=== PATIENT | male | born 1940 | race Caucasian/White ===

== ENCOUNTER 2022-03-01 08:16 | Day surgery (SDC) | payer MEDICARE, OTHER, SELFPAY ==
[2022-03-01] VITALS (16 sets, daily range): BP systolic 105–176; BP diastolic 72–121; PULSE 61–67; RESP 16–20; TEMP 36.4–36.9; O2SAT 93–99; BMI 23.8
[2022-03-01] MEDS: SODIUM CHLORIDE 0.9 % (FLUSH) 10 ML SYRINGE IVF (08:45)
[2022-03-01] MEDS: LACTATED RINGERS 1000 ML 1,000 ML 100 ML IV (08:45)
[2022-03-01] MEDS: CEFAZOLIN 2 GM INJ IVP (11:15)
--- NOTE | 2022-03-01 11:55 | SUR.OPER ---
PATIENT QUESTIONS ANSWERED SATISFACTORILY PREOPERATIVELY.? PATIENT BROUGHT TO OR #1 PER CART.? Patient positioned supine on OR #1 bed.?The perioperative?team supported arms bilaterally on arm boards.? Final approval of positioning by surgeon.
--- NOTE | 2022-03-01 12:34 | PM.GSPRC ---
Operative Note Date of procedure: 03/01/22 Type of Procedure: Open right inguinal hernia repair with placement of mesh Procedure Description: After discussing the risks and benefits of the procedure, the patient signed informed consent.? The operative site was marked and the patient was brought to the operating room and placed on the operating table in supine position.? Care was taken to pad the patient's pressure points.?? The patient was then sedated by anesthesia and a spinal anesthetic was administered The operative site was then prepped and draped in the usual sterile fashion.? A time-out was then performed. Local anesthetic was injected into the skin and subcutaneous tissue overlying the inguinal canal. An oblique incision would was made over the external ring. Dissection was carried down into the subcutaneous tissue using cautery until the external oblique fascia was encountered. This was cleared off. The external ring was identified and after injection of more local anesthetic, the external oblique was incised using a knife. This was extended using the Metzenbaum scissors with care to dissect the underlying cord structures away before cutting. The cord was cleared from the inside of the inguinal canal and looped with a [place] drain. A indirect inguinal hernia was identified. The hernia sac was dissected off of the cord structures. This was opened to ensure no intra-abdominal contents were present. The hernia sac was then ligated proximal and reduced into the abdomen. The piece of polypropylene mesh was obtained and cut to size. This was secured to the pubic tubercle using to 2-0 Prolene double-arm suture. The Prolene was run along the inguinal ligament and superiorly along the transversalis fascia securing the tails behind the cord and recreating the internal ring. Wound was examined for hemostasis. The external oblique fascia was then reapproximated with absorbable suture. The wound was then closed in layers including Michael's fascia and the dermis with the cervical suture. The skin was then closed with a running subcuticular suture. Sterile dressings were applied. Instrument sponge and needle counts were correct at the end of the case. The patient was woken and taken to the PACU in stable condition. ? Sterile dressings were then applied. ? The patient was then woken and transported to the recovery area in stable condition. ? The patient tolerated the procedure well. Findings: Indirect inguinal hernia Anesthesia: spinal Surgeon: Flower Laruen MD Estimated blood loss (mL): 10 Condition: stable Disposition: same day
--- NOTE | 2022-03-01 12:47 | W.ANESCHARGE ---
Anesthesia Charges Start Date/Time Anesthesia Start Date: 03/01/22 Anesthesia Start Time: 11:04 Stop Date/Time Anesthesia Stop Date: 03/01/22 Anesthesia Stop Time: 12:39 Summary Emergency: No Extremes of Age: Over 71-CPT 62704
[2022-03-01] MEDS: OXYCODONE 5 MG TABLET PO (13:50)
--- NOTE | 2022-03-01 15:10 | W.ANESCHARGE ---
Anesthesia Charges Start Date/Time Anesthesia Start Date: 03/01/22 Anesthesia Start Time: 11:04 Stop Date/Time Anesthesia Stop Date: 03/01/22 Anesthesia Stop Time: 12:39 Summary Emergency: No Extremes of Age: Over 71-CPT 66140
== END 2022-03-01 15:00 | disposition home or self-care (01) ==
PROVIDERS: PCP Physician Assistant Medical; Visit Provider Surgery
PROC: (CPT 49505; principal; 2022-03-01 09:50)
DX: K40.90 Unilateral inguinal hernia, without obstruction or gangrene, not specified as recurrent (principal)
CPT/HCPCS: 49505; 00830; 99100; A9270; C1781; J0690; J2370; J2400; J2704; J3010; J7120

== ENCOUNTER 2022-09-07 09:27 | Emergency (ER) | payer MEDICARE, OTHER, SELFPAY ==
[2022-09-07 09:39] VITALS: BP 147/90; PULSE 60; RESP 20; TEMP 37.2; O2SAT 93; BMI 23.7
--- NOTE | 2022-09-07 09:54 | ED_ITS ---
HPI - General Adult General Chief complaint: Weakness Stated complaint: Weakness, Cough, Can't feel legs off and on Time Seen by Provider: 09/07/22 09:30 History of Present Illness HPI narrative: Patient is 82-year-old male was brought in by his son with a complaint of cough, weakness. He has had multiple medical problems as reviewed in his chart. He does report that he has had some generalized weakness and cough over the last few days. His called his son who brought him here today. The patient denies any chest pain, any cough at this time to me, but his son reports that he did have a cough at home and has had been coughing up material. He has had no leg swelling no chest pain, but he did tell the nurses he had chest pain he denies that to me. Presents to ED for evaluation with his son's assistance. He states he has been weak to roll over in bed and he has also been weak in his legs but he has been able to walk. No bowel or bladder dysfunction Related Data Home Medications Medication Instructions Recorded Confirmed aspirin 81 mg tablet,delayed 81 mg PO DAILY 02/25/22 03/01/22 release (Adult Aspirin Regimen) bromocriptine 2.5 mg tablet 2.5 mg PO DAILY 02/25/22 02/25/22 carbidopa 25 mg-levodopa 100 mg 1 tab PO TID 02/25/22 03/01/22 tablet (Sinemet) lorazepam 0.5 mg tablet (Ativan) 0.5 mg PO Q6H PRN 02/25/22 02/25/22 nitroglycerin 0.4 mg sublingual 0.4 mg sublingual .Q5 PRN chest 02/25/22 02/25/22 tablet pain oxycodone-acetaminophen 5 mg-325 1 tab PO Q6H PRN 02/25/22 03/01/22 mg tablet sennosides 8.6 mg capsule (senna) 8.6 mg PO BID 02/25/22 03/01/22 sildenafil 50 mg tablet (Viagra) 50 mg PO DAILY PRN 02/25/22 02/25/22 simvastatin 40 mg tablet 40 mg PO DAILY 02/25/22 03/01/22 trospium 60 mg capsule,extended 60 mg PO DAILY 02/25/22 02/25/22 release 24 hr Previous Rx's Medication Instructions Recorded oxycodone 5 mg tablet 5 mg PO Q6H PRN pain #10 tabs 03/01/22 sennosides 8.6 mg capsule (senna) 8.6 mg PO DAILY PRN constipation 03/01/22 #90 caps azithromycin 500 mg tablet 500 mg PO DAILY 3 days #3 tabs 09/07/22 (Zithromax TRI-ANDRE) furosemide 20 mg tablet (Lasix) 20 mg PO DAILY 5 days #5 tabs 09/07/22 prednisone 20 mg tablet 20 mg PO DAILY 3 days #3 tabs 09/07/22 Allergies Allergy/AdvReac Type Severity Reaction Status Date / Time No Known Allergies Allergy Verified 09/07/22 09:39 Review of Systems Status of ROS: Reports: 6 or more systems reviewed and unremarkable except as noted in History and below [facility] Medical History Acute kidney injury Adrenal hyperplasia Anxiety state, unspecified Arteriosclerotic cardiovascular disease Benign localized prostatic hyperplasia without lower urinary tract symptoms (LUTS) Benign neoplasm of colon, unspecified Cardiac pacemaker Chronic kidney disease, stage 3 unspecified Chronotropic incompetence COPD (chronic obstructive pulmonary disease) Degenerative joint disease of knee, right Dyslipidemia, goal LDL below 70 ED (erectile dysfunction) Gastric reflux Hyperkalemia Hypertension Lung nodule Orthostatic hypotension Other adrenocortical insufficiency Other cervical disc degeneration, unspecified cervical region Pain in unspecified shoulder Sensorineural hearing loss, bilateral Tremor, unspecified Ureteral dilatation Surgical History History of permanent cardiac pacemaker placement Social History Smoking Status: Never smoker How often do you have a drink containing alcohol: never How often do you have six or more drinks on one occasion: Never AUDIT-C Alcohol total score: 0 Non-prescribed substance use: denies use Caffeine: No service: No Exam Narrative: Exam Narrative: Objective: Patient's vital signs are unremarkable He is alert orient x3 He has got mild mattering about his eyes. He is alert orient x3, noncyanotic HEENT is otherwise unremarkable throat clear Neck is supple Chest is clear no rales or wheezing Heart rhythm regular 2/6 systolic murmur Abdomen benign soft nontender Extremities are no edema neurologic nonfocal Good peripheral perfusion Normal strength and sensation lower extremities is able to lift his legs off the ground, normal flexion extension of the ankles to resist Const: Vital Signs, click to edit/add: Vital Signs - 24 hr 09/07/22 09:39 09/07/22 12:09 Temperature 99.0 F 98.9 F Pulse Rate [Left] 60 64 Respiratory Rate 20 20 Blood Pressure [Ri ght Upper Arm] 147/90 H 126/68 Pulse Oximetry 93 93 Oxygen Delivery Me thod Room Air Room Air Course Vital Signs Vital signs: Initial Vital Signs Temperature 99.0 F 09/07/22 09:39 Temperature Source Temporal Artery Scan 09/07/22 09:39 Pulse Rate 60 09/07/22 09:39 Pulse Rhythm 09/07/22 09:39 Respiratory Rate 20 09/07/22 09:39 Blood Pressure 147/90 H 09/07/22 09:39 Blood Pressure Mean 109 09/07/22 09:39 Pulse Oximetry 93 09/07/22 09:39 Oxygen Delivery Method 09/07/22 09:39 Vital Signs Temperature 99.0 F 09/07/22 09:39 Pulse Rate 60 09/07/22 09:39 Respiratory Rate 20 09/07/22 09:39 Blood Pressure 147/90 H 09/07/22 09:39 Pulse Oximetry 93 09/07/22 09:39 Oxygen Delivery Method 09/07/22 09:39 Temperature 98.9 F 09/07/22 12:09 Pulse Rate 64 09/07/22 12:09 Respiratory Rate 20 09/07/22 12:09 Blood Pressure 126/68 09/07/22 12:09 Pulse Oximetry 93 09/07/22 12:09 Oxygen Delivery Method 09/07/22 12:09 Medical Decision Making MDM Narrative Medical decision making narrative: Patient has a cough and has been weak over the last few days. He has no chronic respiratory condition by his report, denies emphysema. Discussed workup options with he and his son. His son is adamant that he not get a nasal test for COVID/influenza/RSV due to the fact that he lost his smell for 2 years and he feels it was related to the nasal test. When I described to the son that he I would recommend we rule out RSV and COVID, he says ?what is COVID, we do not really know what it is. ?. The patient after mutual decision making does agree to get a chest x-ray and some lab work done. I think that is reasonable. I would recommend however that he have COVID and RSV and influenza testing, but they elected to just do blood work and an x-ray. Addendum: By my read the x-ray shows some alveolar edema or inflammation. He certainly could have a viral infection. Again they are not allowing a COVID/influenza/RSV test. Given this this could be infectious or mild congestive failure. The patient reports that he did have cardiac stents in the past and a pacemaker but has not had heart failure by his report, the patient is agreeable to get some IV antibiotics and IV Lasix. Given the wound get a COVID test he the ER unable to admit him to the hospital, but he does not think he needs admission. I would recommend an outpatient echocardiogram, follow up with regular doctors aligned within the next couple of days light activity. Will given several days of Lasix, Zithromax for home. Addendum: The patient's EKG shows paced rhythm and his troponin is negative, his proBNP is elevated 2200. I think the Lasix prednisone antibiotics is appropriate. Again we are unable to test him for COVID/influenza/RSV. Very well might have 1 of these. He might have some mild congestive heart failure as well as he did have coronary artery disease in the past. Would recommend an echo as an outpatient as well as continue Lasix for couple of days. Lab Data Labs: Lab Results 09/07/22 09/07/22 Range/Units 10:06 10:06 WBC 11.56 H (4.50-11.00) K/uL RBC 4.74 (4.30-5.90) m/uL Hgb 14.2 (13.5-17.5) gm/dL Hct 42.2 (37.0-53.0) % MCV 89 (80-100) fL MCH 30 (26-34) pg MCHC 34 (32-36) gm/dL RDW Coeff of Petr 13.4 (11.5-15.5) % Plt Count 154 (140-440) K/uL Neut % (Auto) 85.0 H (42.0-72.0) % Lymph % (Auto) 4.9 L (20-44) % [place] % (Auto) 9.3 (0.0-11.0) % Eos % (Auto) 0.4 (0.0-7.0) % Baso % (Auto) 0.1 (0.0-3.0) % Neut # (Auto) 9.80 H (1.7-7.0) K/uL Lymph # (Auto) 0.60 L (0.90-2.90) K/uL [place] # (Auto) 1.10 H (0.00-0.90) K/UL Eos # (Auto) 0.00 (0.00-0.50) K/uL Baso # (Auto) 0.00 (0.00-0.30) K/uL Sodium 135 (135-149) mmol/L Potassium 3.8 (3.6-5.1) mmol/L Chloride 102 (96-114) mmol/L Carbon Dioxide 27 (20-32) mmol/L BUN 19 (7-30) mg/dL Creatinine 0.9 (0.5-1.5) mg/dL Estimated Creat Clear 63.59 Estimated GFR 86 ml/min Glucose 110 (60-115) mg/dL Calcium 8.3 L (8.4-10.6) mg/dL Troponin I 0.03 (0.01-0.04) ng/mL NT-Pro-B Natriuret Pep 2200 pg/mL Discharge Plan Discharge Clinical Impression: Acute cough, Weakness Patient Disposition: Home w/ Parent or Adult Condition: Stable Additional Instructions: Rest, fluids, Tylenol or Advil as needed. Will discharge you on oral antibiotics, a couple days of steroids, and a water pill for several days as well. I would recommend he recheck with your regular doctor in the next 2-3 days. Would recommend an outpatient ultrasound of your heart to make sure it is functioning normally. Return to the ED sooner problems concerns or worsening. Activity Level: Light activity Discharge Diet: Regular Prescriptions: New azithromycin [Zithromax TRI-ANDRE] 500 mg tablet 500 mg PO DAILY 3 Days Qty: 3 0RF furosemide [Lasix] 20 mg tablet 20 mg PO DAILY 5 Days Qty: 5 0RF prednisone 20 mg tablet 20 mg PO DAILY 3 Days Qty: 3 0RF No Action aspirin [Adult Aspirin Regimen] 81 mg tablet,delayed release (DR/EC) 81 mg PO DAILY bromocriptine 2.5 mg tablet 2.5 mg PO DAILY Rx Instructions: must administer with a meal/food carbidopa-levodopa [Sinemet] 25-100 mg tablet 1 tab PO TID lorazepam [Ativan] 0.5 mg tablet 0.5 mg PO Q6H PRN nitroglycerin 0.4 mg tablet, sublingual 0.4 mg sublingual .Q5 PRN (Reason: chest pain) Rx Instructions: PRN CHEST PAIN oxycodone-acetaminophen 5-325 mg tablet 1 tab PO Q6H PRN senna 8.6 mg capsule 8.6 mg PO BID sildenafil [Viagra] 50 mg tablet 50 mg PO DAILY PRN Rx Instructions: administer 30 minutes to 4 hours before activity simvastatin 40 mg tablet 40 mg PO DAILY trospium 60 mg capsule,extended release 24hr 60 mg PO DAILY Rx Instructions: must be taken on empty stomach at least 1 hour before a meal/food with water only oxycodone 5 mg tablet 5 mg PO Q6H PRN (Reason: pain) Qty: 10 0RF senna 8.6 mg capsule 8.6 mg PO DAILY PRN (Reason: constipation) Qty: 90 0RF Follow Up/Referrals: Enid Johnston, PAMiguel Angel [Primary Care Provider] - Stand Alone Forms: [employer] Info Instructions
--- NOTE | 2022-09-07 09:54 | CRLHL7_ITS ---
For Patients: As a result of the Century Cures Act, medical imaging exams and procedure reports are released immediately into your electronic medical record. You may view this report before your referring provider. If you have questions, please contact your health care provider. INDICATION: Cough COMPARISON: July 12, 2021. TECHNIQUE: Single-view examination FINDINGS: TUBES AND LINES: Pacer with leads terminating in the right atrium and the right ventricle HEART AND MEDIASTINUM: Heart size normal. Significantly enlarged central pulmonary arteries consistent with pulmonary hypertension. Similar to the prior exam. LUNGS AND PLEURAL SPACES: Abnormal interstitial and alveolar findings likely related to pulmonary edema/congestive heart failure. A diffuse inflammatory process accounting for this appearance is possible.No pleural effusion or pneumothorax OSSEOUS STRUCTURES: Age-appropriate appearance. No acute focal finding. IMPRESSION: 1. Abnormal interstitial and alveolar findings likely related to pulmonary edema/congestive heart failure. A diffuse inflammatory process may create this appearance. Normal pleural spaces. 2. Pacer normally located. 3. Enlarged central pulmonary arteries consistent with pulmonary hypertension. Similar to the prior exam. Dictated by Dell Dutta MD @ 09/07/2022 10:12:10 AM (Electronically Signed)
--- NOTE | 2022-09-07 10:01 | ED.NURSE ---
Patient and grandson refused swabbing for COVID-19, Flu, and RSV today. Encouraged them to speak with provider to discuss concerns.
[2022-09-07 10:13] LABS: Basophils Percent Auto 0.1 % (0.0-3.0); Eosinophils Percent Auto 0.4 % (0.0-7.0); Hematocrit 42.2 % (37.0-53.0); Hemoglobin* 14.2 gm/dL (13.5-17.5); Immature Granulocytes Pct Auto 0.3 %; Lymphocytes Percent Auto 4.9 % (20-44); Mean Corpuscular HGB Conc 34 gm/dL (32-36); Mean Corpuscular Hemoglobin 30 pg (26-34); Mean Corpuscular Volume 89 fL (80-100); Monocytes Percent Auto 9.3 % (0.0-11.0); Platelet Count* 154 K/uL (140-440); RDW Coefficient of Variation % 13.4 % (11.5-15.5); Red Blood Count 4.74 m/uL (4.30-5.90); White Blood Count* 11.56 K/uL (4.50-11.00)
[2022-09-07 10:23] LABS: Slide Review Reflex No
[2022-09-07 10:24] LABS: Chloride* 102 mmol/L (96-114)
[2022-09-07 10:25] LABS: Potassium* 3.8 mmol/L (3.6-5.1); Sodium* 135 mmol/L (135-149)
[2022-09-07 10:27] LABS: Creatinine* 0.9 mg/dL (0.5-1.5); Est. Creatinine Clearance* 63.59; Estimated Glomerular Filt Rate 86 ml/min
[2022-09-07 10:28] LABS: Blood Urea Nitrogen* 19 mg/dL (7-30); Calcium* 8.3 mg/dL (8.4-10.6); Carbon Dioxide* 27 mmol/L (20-32); Glucose* 110 mg/dL (60-115)
[2022-09-07] MEDS: METHYLPREDNISOLONE SOD SUCC 62.5 MG/ML (125) 125 MG IVP (11:03)
[2022-09-07] MEDS: FUROSEMIDE 10 MG/ML inj 40 MG IVP (11:03)
[2022-09-07] MEDS: AZITHROMYCIN 100 MG/ML inj 500 MG IVPB (11:03)
[2022-09-07 11:14] LABS: Troponin I* 0.03 ng/mL (0.01-0.04)
[2022-09-07 11:15] LABS: NT Pro B Type NatriureticPept* 2200 pg/mL
[2022-09-07 12:09] VITALS: BP 126/68; PULSE 64; RESP 20; TEMP 37.2; O2SAT 93
[2022-09-07] MEDS: cefTRIAXone 1 GM in 0.9 % SODIUM CHLORIDE Mini-bag 100 ML IVPB (12:40)
== END 2022-09-07 13:24 | disposition home or self-care (01) ==
LOC: ED 10:09
PROVIDERS: Emergency Provider Family Medicine; PCP Physician Assistant Medical
DX: R05.1 Acute cough (principal)
CPT/HCPCS: 36415; 71045; 80048; 83880; 84484; 85025; 93005; 99284; J0456; J0696; J1940; J2930

== ENCOUNTER 2022-09-08 16:22 | Inpatient (IN) | payer MEDICARE, OTHER, SELFPAY ==
[2022-09-08] VITALS (14 sets, daily range): BP systolic 112–150; BP diastolic 66–111; PULSE 61–100; RESP 18–20; TEMP 36.3–38.4; O2SAT 89–95; BMI 23.7; BMI 25.1
--- NOTE | 2022-09-08 16:52 | ED_ITS ---
HPI - General Adult General Time Seen by Provider: 16:52 Date Seen: 09/08/22 Chief complaint: Shortness of Breath/Dyspnea Stated complaint: Short of breath Time Seen by Provider: 09/08/22 16:44 Source: patient and RN notes reviewed Mode of arrival: ambulatory Limitations: no limitations History of Present Illness HPI narrative: Matthew is an 82-year-old male coming into the ER with increasing confusion, misuse of his medicines due to his confusion, ongoing cough. Matthew was in the ER yesterday with a few day history of cough, weakness. He was given Zithromax, prednisone in Lasix for possible underlying COPD, respiratory infection and may be component of CHF. His proBNP was elevated at 2200. He has underlying Parkinson's as well. His son late out the medicines for the next 3 days and Matthew became confused. He has taken 3 days of Lasix as well as azithromycin, probably prednisone. He may have gotten his Parkinson's medications confused as well. He has had a respiratory symptoms and is coughing. He denies feeling short of breath but is definitely confused today he is alert and conversive but does seem tired overall. Yesterday his son did not want him to have the viral swab nasally. I did discuss this with him today and he certainly is agreeable to have it done today, he just wants to help his dad. Reviewed with the son that I think it does give us important information, 2 other viruses may have medicines that we can intervene with. He denies any pain except with coughing in his chest. Related Data Home Medications Medication Instructions Recorded Confirmed aspirin 81 mg tablet,delayed 81 mg PO DAILY 02/25/22 09/08/22 release (Adult Aspirin Regimen) bromocriptine 2.5 mg tablet 2.5 mg PO DAILY 02/25/22 09/09/22 carbidopa 25 mg-levodopa 100 mg 1 tab PO TID 02/25/22 09/08/22 tablet (Sinemet) lorazepam 0.5 mg tablet (Ativan) 0.5 mg PO Q6H PRN 02/25/22 09/08/22 nitroglycerin 0.4 mg sublingual 0.4 mg sublingual Q5M PRN chest 02/25/22 09/09/22 tablet pain oxycodone-acetaminophen 5 mg-325 1 tab PO Q6H PRN 02/25/22 09/09/22 mg tablet sennosides 8.6 mg capsule (senna) 8.6 mg PO BID 02/25/22 09/08/22 sildenafil 50 mg tablet (Viagra) 50 mg PO DAILY PRN 02/25/22 09/09/22 simvastatin 40 mg tablet 40 mg PO DAILY 02/25/22 09/08/22 trospium 60 mg capsule,extended 60 mg PO DAILY 02/25/22 09/08/22 release 24 hr fludrocortisone 0.1 mg tablet 0.1 mg PO BID 09/08/22 09/08/22 Previous Rx's Medication Instructions Recorded sennosides 8.6 mg capsule (senna) 8.6 mg PO DAILY PRN constipation 03/01/22 #90 caps azithromycin 500 mg tablet 500 mg PO DAILY 3 days #3 tabs 09/07/22 (Zithromax TRI-ANDRE) furosemide 20 mg tablet (Lasix) 20 mg PO DAILY 5 days #5 tabs 09/07/22 prednisone 20 mg tablet 20 mg PO DAILY 3 days #3 tabs 09/07/22 Allergies Allergy/AdvReac Type Severity Reaction Status Date / Time No Known Allergies Allergy Verified 09/08/22 16:39 Review of Systems Status of ROS: Reports: 10 or more systems reviewed and unremarkable except as noted in History and below Narrative: Patient is denying many pertinent positives on the review systems but do question his full ability due to his illness, fever and confusion to give us definitive review of systems. [facility] Medical History (Updated 09/11/22 @ 11:54 by Mariella Haas MD) Adrenal insufficiency Cardiac pacemaker Chronic kidney disease, stage 3 unspecified COPD (chronic obstructive pulmonary disease) Coronary artery disease Degenerative joint disease of knee, right Dyslipidemia, goal LDL below 70 ED (erectile dysfunction) Hyperlipidemia Hypertension Orthostatic hypotension Parkinson's disease Sensorineural hearing loss, bilateral Solitary lung nodule Surgical History History of permanent cardiac pacemaker placement Social History Highest level of school completed/degree received: 11th grade Smoking Status: Former smoker Do you use any of these nicotine containing products: None How often do you have a drink containing alcohol: never How often do you have six or more drinks on one occasion: Never AUDIT-C Alcohol total score: 0 Non-prescribed substance use: denies use Caffeine: Yes (occasional coffee) service: No Exam Const: Vital Signs, click to edit/add: Vital Signs - 24 hr 09/08/22 16:29 09/08/22 17:45 Temperature 101.1 F H Pulse Rate [Right Pulse Oximeter] 100 Respiratory Rate 18 Blood Pressure [Ri ght Upper Arm] 112/66 Pulse Oximetry 92 91 Oxygen Delivery Me thod Room Air Documenting provider has reviewed patient's vital signs: yes Common normals: no apparent distress, average body habitus and alert General appeara nce: cooperative, comfortable, well kempt, well developed, ill appearing and frail appearing Orientation/consciousness: Yes awake Other: He really does not remember what he did with the pills but no that he got confused and took them wrong. His cheeks are flushed. Speech is coherent, normal. HENMT: Common normals: normocephalic, head/scalp atraumatic, hearing grossly normal bilaterally, external nose normal and nasal mucous membranes and turbinates normal Head and scalp: normocephalic and atraumatic Nose: external nose normal and nasal mucous membranes and turbinates normal Other: Mucous membranes are somewhat dry. Has symmetrical facial function while talking to him. Eye: Common normals: PERRL, EOMs intact bilaterally, conjunctivae normal and no scleral icterus Conjunctiva: conjunctiva(e) normal Pupil: PERRL Neck & C-Spine: Common normals: full ROM, no lymphadenopathy, supple, no meningeal signs, no JVD and thyroid normal Thyroid: thyroid normal Chest: Common normals: inspection of chest normal and palpation of chest normal Resp: Common normals: normal respiratory effort, no retractions and no use of accessory muscles Other: Rolls to his side so I can listen to his lungs. Breath sounds are distant, hear no wheezing. He is not tachypneic at this time. Is able to speak without difficulty. Cardio: Common normals: no JVD, regular rate, regular rhythm, S1 normal heart sound, S2 normal heart sound, no gallops and no murmurs Rate: regular rate Rhythm: regular rhythm Heart sounds: S1 normal and S2 normal GI: Common normals: Normal to inspection, nondistended, normoactive bowel sounds present, soft to palpation, non-tender, no hepatosplenomegaly and no masses Palpation: soft and no hepatosplenomegaly Neuro: Sensorium/orientation: awake and alert Meningeal signs: no meningeal signs Psych: Appearance: well kempt Course Course Hospital Course: Patient is febrile, will pursue chest x-ray, full complement of labs including blood cultures. Son agrees to have us do the triple viral swab which I think is important to do. If he is going to be hospitalized which I think he will need to be, will need that information anyways at least for the COVID. I do recomme nd that we do do the RSV as well as the influenza. There is viral treatment for influenza. If he has RSV, does help us with expectations for the disease course. He has taken what sounds to be almost a full course of a is a through mycin in the last 2 days. Will need to watch him for medication reactions. We will have him on cardiac monitoring, obtain a baseline EKG and see where his QT interval is. May need to consider discussion with poison Control but at this time it is doubtful that he is taken enough of anything that is going to alter him significantly. Will watch for hypotension with the extra Lasix he took, acute kidney injury electrolyte abnormalities. Will go slow with fluid resuscitation but do think we need to initiate some at this point. We will start with 500 mL normal saline while we await some of our studies and the chest x-ray to come back. This most certainly seems like it is an infectious etiology with the fever are and likely respiratory source. Reevaluation(s) Reevaluation #1: Have reviewed that Matthew has COVID, have discussed this with his son at length. We unfortunately do not have remdesivir here at this time and his son at this time does not think he wants him to have it. Did discuss the possibility of looking to see if any surrounding facilities might have remdesivir but it is doubtful that a transfer would likely happen. His son does not want to do this at this time. Have reviewed that we will cover for bacterial pneumonia, will give him dexamethasone which is a steroid that has been shown to be helpful with hypoxic COVID. We will also be obtaining a CT scan of his chest following PE protocol. This was all reviewed with the hospitalist prior to going in to talk to the son. I have ordered Rocephin 2 g IV. Patient has had appropriate azithromycin plus extra today. It appears that he was given a prescription for 500 mg daily maybe for 3 days and has probably taken all of that today. Will plan on full admission for this patient given his COVID encephalopathy, chest x- ray presentation of bilateral pneumonia that is worsening from yesterday, fever now. I for see this being a lengthy hospitalization given the known history of COVID pneumonia presenting like this in other patients. We are still awaiting chest CT PE protocol to be done as well. Time: 18:22 Vital Signs Vital signs: Initial Vital Signs Temperature 101.1 F H 09/08/22 16:29 Temperature Source Temporal Artery Scan 09/08/22 16:29 Pulse Rate 100 09/08/22 16:29 Respiratory Rate 18 09/08/22 16:29 Respiratory Effort 09/08/22 16:29 Respiratory Depth Normal 09/08/22 16:29 Respiratory Pattern 09/08/22 16:29 Blood Pressure 112/66 09/08/22 16:29 Blood Pressure Mean 81 09/08/22 16:29 Blood Pressure Position Sitting 09/08/22 16:29 Pulse Oximetry 92 09/08/22 16:29 Oxygen Delivery Method 09/08/22 16:29 Vital Signs Temperature 101.1 F H 09/08/22 16:29 Pulse Rate 100 09/08/22 16:29 Respiratory Rate 18 09/08/22 16:29 Blood Pressure 112/66 09/08/22 16:29 Pulse Oximetry 92 09/08/22 16:29 Oxygen Delivery Method 09/08/22 16:29 Temperature 97.1 F L 09/12/22 11:38 Pulse Rate 62 09/12/22 11:38 Respiratory Rate 22 09/12/22 11:38 Blood Pressure 185/89 H 09/12/22 11:38 Pulse Oximetry 87 L 09/12/22 11:38 Oxygen Delivery Method 09/12/22 11:38 Oxygen Flow Rate 35 09/12/22 11:38 Fraction of Inspired Oxygen 55 09/12/22 14:00 Medical Decision Making Lab Data Lab results reviewed: Yes I reviewed the patient's lab results Labs: Lab Results 09/08/22 09/08/22 09/08/22 Range/Units 17:15 17:19 17:19 WBC 17.42 H (4.50-11.00) K/uL RBC 4.58 (4.30-5.90) m/uL Hgb 13.9 (13.5-17.5) gm/dL Hct 40.6 (37.0-53.0) % MCV 89 (80-100) fL MCH 30 (26-34) pg MCHC 34 (32-36) gm/dL RDW Coeff of Petr 13.3 (11.5-15.5) % Plt Count 185 (140-440) K/uL Neut % (Auto) 88.8 H (42.0-72.0) % Lymph % (Auto) 3.2 L (20-44) % [place] % (Auto) 7.2 (0.0-11.0) % Eos % (Auto) 0.3 (0.0-7.0) % Baso % (Auto) 0.1 (0.0-3.0) % Neut # (Auto) 15.50 H (1.7-7.0) K/uL Lymph # (Auto) 0.60 L (0.90-2.90) K/uL [place] # (Auto) 1.30 H (0.00-0.90) K/UL Eos # (Auto) 0.10 (0.00-0.50) K/uL Baso # (Auto) 0.00 (0.00-0.30) K/uL VBG pH (7.32-7.43) VBG pCO2 (40-50) mmHG VBG pO2 (25-47) mmHG VBG HCO3 (21-28) mmol/L Sodium 130 L (135-149) mmol/L Potassium 3.7 (3.6-5.1) mmol/L Chloride 97 (96-114) mmol/L Carbon Dioxide 29 (20-32) mmol/L BUN 28 (7-30) mg/dL Creatinine 1.1 (0.5-1.5) mg/dL Estimated Creat Clear 57.81 Estimated GFR 67 ml/min Glucose 101 (60-115) mg/dL Lactate 1.3 (0.5-1.9) mmol/L Calcium 8.0 L (8.4-10.6) mg/dL Total Bilirubin 1.5 (0.1-1.5) mg/dL AST 23 (12-35) U/L ALT 10 (4-50) U/L Alkaline Phosphatase 72 (40-150) U/L C-Reactive Protein 6.9 H (0.5-1.0) mg/dL NT-Pro-B Natriuret Pep 2710 pg/mL Total Protein 5.9 L (6.0-8.3) g/dL Albumin 3.2 L (3.3-5.0) g/dL Procalcitonin 0.33 (<0.50) ng/mL Urine Color (Yellow) Urine Appearance (Clear) Urine pH (5.0-8.5) Ur Specific [place] (1.000-1.030) Urine Protein (Negative) Urine Glucose (UA) (Negative) Urine Ketones (Negative) Urine Blood (Negative) Urine Nitrite (Negative) Urine Bilirubin (Negative) Urine Urobilinogen (0.2-1.0) Ur Leukocyte Esterase (Negative) Urine RBC (0-2) Urine WBC (0-5) Ur Squamous Epith Cells (None-Few) Urine Bacteria (None) SARS-CoV-2 (PCR) (Negative) Influenza Type A (PCR) (Negative) Influenza Type B (PCR) (Negative) RSV (PCR) (Negative) 09/08/22 09/08/22 09/08/22 Range/Units 17:19 17:19 18:47 WBC (4.50-11.00) K/uL RBC (4.30-5.90) m/uL Hgb (13.5-17.5) gm/dL Hct (37.0-53.0) % MCV (80-100) fL MCH (26-34) pg MCHC (32-36) gm/dL RDW Coeff of Petr (11.5-15.5) % Plt Count (140-440) K/uL Neut % (Auto) (42.0-72.0) % Lymph % (Auto) (20-44) % [place] % (Auto) (0.0-11.0) % Eos % (Auto) (0.0-7.0) % Baso % (Auto) (0.0-3.0) % Neut # (Auto) (1.7-7.0) K/uL Lymph # (Auto) (0.90-2.90) K/uL [place] # (Auto) (0.00-0.90) K/UL Eos # (Auto) (0.00-0.50) K/uL Baso # (Auto) (0.00-0.30) K/uL VBG pH 7.419 (7.32-7.43) VBG pCO2 49 (40-50) mmHG VBG pO2 35.2 (25-47) mmHG VBG HCO3 32 H (21-28) mmol/L Sodium (135-149) mmol/L Potassium (3.6-5.1) mmol/L Chloride (96-114) mmol/L Carbon Dioxide (20-32) mmol/L BUN (7-30) mg/dL Creatinine (0.5-1.5) mg/dL Estimated Creat Clear Estimated GFR ml/min Glucose (60-115) mg/dL Lactate (0.5-1.9) mmol/L Calcium (8.4-10.6) mg/dL Total Bilirubin (0.1-1.5) mg/dL AST (12-35) U/L ALT (4-50) U/L Alkaline Phosphatase (40-150) U/L C-Reactive Protein (0.5-1.0) mg/dL NT-Pro-B Natriuret Pep pg/mL Total Protein (6.0-8.3) g/dL Albumin (3.3-5.0) g/dL Procalcitonin (<0.50) ng/mL Urine Color Yellow (Yellow) Urine Appearance Slightly Cloudy A (Clear) Urine pH 6.0 (5.0-8.5) Ur Specific [place] 1.015 (1.000-1.030) Urine Protein Trace A (Negative) Urine Glucose (UA) Negative (Negative) Urine Ketones Trace A (Negative) Urine Blood Negative (Negative) Urine Nitrite Negative (Negative) Urine Bilirubin 1+ A (Negative) Urine Urobilinogen 2.0 A (0.2-1.0) Ur Leukocyte Esterase Negative (Negative) Urine RBC 0-2 (0-2) Urine WBC 0-2 (0-5) Ur Squamous Epith Cells Few (None-Few) Urine Bacteria None (None) SARS-CoV-2 (PCR) POSITIVE SARS-CoV-2 A (Negative) Influenza Type A (PCR) Negative PCR FLU A (Negative) Influenza Type B (PCR) Negative PCR FLU B (Negative) RSV (PCR) Negative PCR RSV (Negative) Imaging Data Chest x-ray: Attestation: I have reviewed the pertinent imaging results. My impression: Seems to have increased patchy areas throughout both lung cedeño, right looks worse to me on comparison of yesterday's chest x-ray. This is my preliminary review of his portable chest x-ray. Radiologist's impression: Patient: [facility] Facility:?[facility] Patient ID:?[id number] Site Patient ID:?[id number]. Site :?[id number] Study:?XRay Chest PORT CHEST-09/08/2022 5:28:33 PM Ordering Physician:Yamilex Grady Final Report: INDICATION: Worsening clinical course, fever. TECHNIQUE: Chest 1 views. COMPARISON: Previous day. FINDINGS: Lungs: Normal lung volume. Worsening bilateral diffuse airspace disease. Pleura: No pleural effusion or pneumothorax. Heart and Mediastinum: Stable cardiomediastinal silhouette. Bones: Stable osseous structures. IMPRESSION: Worsening bilateral diffuse airspace disease. Dictated by Yasmeen Montilla MD @ 09/08/2022 6:05:11 PM (Electronic Signature) CT scan - chest: Attestation: I have reviewed the pertinent imaging results. Radiologist's impression: Patient: [facility] Facility:?[facility] Patient ID:?[id number] Site Patient ID:?[id number]. Site :?[id number] Study:?CT Chest Angio PE W/ISOVUE 370 95CC-09/08/2022 6:44:20 PM Ordering Physician:Yamilex Grady Final Report: INDICATION: COVID, PNEUMONIA, ELEVATED WBC, COPD CT CHEST WITH CONTRAST TECHNIQUE: Multidetector CT imaging was performed through the chest following intravenous contrast administration using 95 mL Isovue 370. Coronal and sagittal reconstructions were generated. COMPARISON: 03/18/[address] FINDINGS: Lungs and airways: Pulmonary emphysema. Significantly decreased size of previously seen right apical lung nodule, which now appears calcified. Scattered mild interstitial fibrosis in the upper and mid lungs, slightly increased from before. Increased bibasilar lung stranding and indeterminate poorly defined lung opacity in the posterior left lower lobe on images 149-168 of series 5. Bibasilar pneumonia is a consideration although underlying malignancy in the left lower lobe is not excluded. Pleura and pleural spaces: New trace bilateral pleural effusions. Heart and mediastinum: Normal heart size. No significant pericardial effusion. Cardiac pacemaker. New mildly enlarged mediastinal lymph node in the AP window on image 68 of series 4, and new mildly enlarged right hilar lymph node on image 117 of series 4. Vascular structures: No filling defects in the pulmonary arterial tree to suggest pulmonary emboli. Normal caliber thoracic aorta. Coronary artery calcifications. Chest wall and axillae: No mass or axillary lymphadenopathy. Osseous structures: Spinal degenerative changes. Upper abdomen: Cholelithiasis without evidence of cholecystitis. Left hepatic lobe small hypodensities most consistent with liver cysts. IMPRESSION: 1. Increased bibasilar lung stranding, suspicious for bibasilar pneumonia. Poorly defined opacity in the left lower lobe, partially obscured by infiltrate, may represent pneumonia although underlying malignancy is not excluded and follow-up is recommended. 2. New trace bilateral pleural effusions. 3. New mild mediastinal and right hilar lymphadenopathy, nonspecific. 4. Pulmonary emphysema. 5. No pulmonary emboli identified. 6. Nonacute additional findings as detailed above. YASMEEN HEREDIA MD [employer] Dictated by Antonino Heredia MD @ 09/08/2022 7:27:32 PM Please note that all CT scans at this facility use dose modulation, iterative reconstruction, and/or weight-based dosing when appropriate to reduce radiation dose to as low as reasonably achievable. Dictated by: Antonino Heredia MD @ 09/08/2022 19:27:51 (Electronic Signature) ECG Data Attestation: I personally reviewed and interpreted this ECG as follows: (Atrial paced at 67 beats per minute, premature atrial complexes.) Prior ECG tracings: not available for review Critical Care Time Critical Care Time Critical Care Time: No Discharge Plan Discharge Clinical Impression: Encephalopathy due to COVID-19 virus, COVID-19, COPD (chronic obstructive pulmonary disease) Patient Disposition: Admitted As Inpatient Condition: Unchanged Activity Level: Up with assist Discharge Diet: Regular
--- NOTE | 2022-09-08 17:00 | CRLHL7_ITS ---
For Patients: As a result of the Century Cures Act, medical imaging exams and procedure reports are released immediately into your electronic medical record. You may view this report before your referring provider. If you have questions, please contact your health care provider. INDICATION: Worsening clinical course, fever. TECHNIQUE: Chest 1 views. COMPARISON: Previous day. FINDINGS: Lungs: Normal lung volume. Worsening bilateral diffuse airspace disease. Pleura: No pleural effusion or pneumothorax. Heart and Mediastinum: Stable cardiomediastinal silhouette. Bones: Stable osseous structures. IMPRESSION: Worsening bilateral diffuse airspace disease. Dictated by Oliverio Montilla MD @ 09/08/2022 6:05:11 PM (Electronically Signed)
[2022-09-08 17:23] LABS: HCO3 VBG 32 mmol/L (21-28); PCO2 VBG 49 mmHG (40-50); PO2 VBG 35.2 mmHG (25-47); pH VBG 7.419 (7.32-7.43)
[2022-09-08 17:26] LABS: Basophils Percent Auto 0.1 % (0.0-3.0); Eosinophils Percent Auto 0.3 % (0.0-7.0); Hematocrit 40.6 % (37.0-53.0); Hemoglobin* 13.9 gm/dL (13.5-17.5); Immature Granulocytes Pct Auto 0.4 %; Lymphocytes Percent Auto 3.2 % (20-44); Mean Corpuscular HGB Conc 34 gm/dL (32-36); Mean Corpuscular Hemoglobin 30 pg (26-34); Mean Corpuscular Volume 89 fL (80-100); Monocytes Percent Auto 7.2 % (0.0-11.0); Neutrophils Percent Auto 88.8 % (42.0-72.0); Platelet Count* 185 K/uL (140-440); RDW Coefficient of Variation % 13.3 % (11.5-15.5); Red Blood Count 4.58 m/uL (4.30-5.90); White Blood Count* 17.42 K/uL (4.50-11.00)
[2022-09-08 17:28] LABS: Slide Review Reflex No
[2022-09-08 17:29] LABS: Lactate* 1.3 mmol/L (0.5-1.9)
[2022-09-08 17:43] LABS: Albumin* 3.2 g/dL (3.3-5.0); Chloride* 97 mmol/L (96-114)
[2022-09-08 17:44] LABS: Potassium* 3.7 mmol/L (3.6-5.1); Sodium* 130 mmol/L (135-149)
[2022-09-08 17:46] LABS: Creatinine* 1.1 mg/dL (0.5-1.5); Est. Creatinine Clearance* 57.81; Estimated Glomerular Filt Rate 67 ml/min
[2022-09-08 17:47] LABS: Alanine Aminotransferase* 10 U/L (4-50); Alkaline Phosphatase* 72 U/L (40-150); Aspartate Amino Transferase* 23 U/L (12-35); Bilirubin Total* 1.5 mg/dL (0.1-1.5); Blood Urea Nitrogen* 28 mg/dL (7-30); Carbon Dioxide* 29 mmol/L (20-32); Glucose* 101 mg/dL (60-115); Total Protein* 5.9 g/dL (6.0-8.3)
[2022-09-08 17:50] LABS: C Reactive Protein* 6.9 mg/dL (0.5-1.0)
[2022-09-08 17:58] LABS: NT Pro B Type NatriureticPept* 2710 pg/mL
[2022-09-08 18:02] LABS: PCR FLU A Negative PCR FLU A (Negative); PCR FLU B Negative PCR FLU B (Negative); PCR RSV Negative PCR RSV (Negative); SARS PCR* POSITIVE SARS-CoV-2 (Negative)
[2022-09-08 18:04] LABS: Procalcitonin* 0.33 ng/mL (<0.50)
--- NOTE | 2022-09-08 18:09 | CRLHL7_ITS ---
For Patients: As a result of the Century Cures Act, medical imaging exams and procedure reports are released immediately into your electronic medical record. You may view this report before your referring provider. If you have questions, please contact your health care provider. INDICATION: COVID, PNEUMONIA, ELEVATED WBC, COPD CT CHEST WITH CONTRAST TECHNIQUE: Multidetector CT imaging was performed through the chest following intravenous contrast administration using 95 mL Isovue 370. Coronal and sagittal reconstructions were generated. COMPARISON: 03/18/[address] FINDINGS: Lungs and airways: Pulmonary emphysema. Significantly decreased size of previously seen right apical lung nodule, which now appears calcified. Scattered mild interstitial fibrosis in the upper and mid lungs, slightly increased from before. Increased bibasilar lung stranding and indeterminate poorly defined lung opacity in the posterior left lower lobe on images 149-168 of series 5. Bibasilar pneumonia is a consideration although underlying malignancy in the left lower lobe is not excluded. Pleura and pleural spaces: New trace bilateral pleural effusions. Heart and mediastinum: Normal heart size. No significant pericardial effusion. Cardiac pacemaker. New mildly enlarged mediastinal lymph node in the AP window on image 68 of series 4, and new mildly enlarged right hilar lymph node on image 117 of series 4. Vascular structures: No filling defects in the pulmonary arterial tree to suggest pulmonary emboli. Normal caliber thoracic aorta. Coronary artery calcifications. Chest wall and axillae: No mass or axillary lymphadenopathy. Osseous structures: Spinal degenerative changes. Upper abdomen: Cholelithiasis without evidence of cholecystitis. Left hepatic lobe small hypodensities most consistent with liver cysts. IMPRESSION: 1. Increased bibasilar lung stranding, suspicious for bibasilar pneumonia. Poorly defined opacity in the left lower lobe, partially obscured by infiltrate, may represent pneumonia although underlying malignancy is not excluded and follow-up is recommended. 2. New trace bilateral pleural effusions. 3. New mild mediastinal and right hilar lymphadenopathy, nonspecific. 4. Pulmonary emphysema. 5. No pulmonary emboli identified. 6. Nonacute additional findings as detailed above. YASMEEN HEREDIA MD [employer] [employer] Dictated by Antonino Heredia MD @ 09/08/2022 7:27:32 PM Please note that all CT scans at this facility use dose modulation, iterative reconstruction, and/or weight-based dosing when appropriate to reduce radiation dose to as low as reasonably achievable. Dictated by: Antonino Heredia MD @ 09/08/2022 19:27:51 (Electronically Signed)
[2022-09-08] MEDS: dexAMETHasone 4 MG/ML VIAL 6 MG IV (18:53)
[2022-09-08] MEDS: cefTRIAXone 2 GM in 0.9 % SODIUM CHLORIDE Mini-bag 100 ML IVPB (18:54)
[2022-09-08 19:08] LABS: Appearance Urine Slightly Cloudy (Clear); Bilirubin Urine 1+ (Negative); Blood Urine Negative (Negative); Color Urine Yellow (Yellow); Glucose Urine Negative (Negative); Ketones Urine Trace (Negative); Leukocyte Esterase Urine Negative (Negative); Nitrite Urine Negative (Negative); Protein Urine Trace (Negative); Specific Gravity Urine 1.015 (1.000-1.030)
[2022-09-08 19:36] LABS: RBC Urine 0-2 (0-2); Squamous Epithelial Cell Urine Few (None-Few); WBC Urine 0-2 (0-5)
--- NOTE | 2022-09-08 20:13 | PM.IMHP1 ---
Hospitalist- H&P: HPI History of Present Illness Time Seen by Provider: 19:00 Date Seen: 09/08/22 Chief complaint: Short of breath Narrative: Matthew Gomez JR is a 82 year old man who presents for the 2nd time in 2 days to emergency department for assessment. Patient's son only allowed partial assessment in the emergency department yesterday. The patient's son would not allow for us to swab for COVID, influenza, or RSV. Chest x-ray suggested bilateral community-acquired pneumonia. Patient was started on appropriate treatment for the same with oral azithromycin and oral prednisone for possible COPD exacerbation. Patient was more confused today. He took his azithromycin this morning, 3 days worth. Similarly for the prednisone. His son then decided bring the patient in for further assessment. Review of Systems Status of ROS: Reports: 10 or more systems reviewed and unremarkable except as noted in History and below Narrative: Patient believes he may have intermittent fevers. Acknowledges a sense of being cold and chilled. Denies rigors or diaphoresis. Has a sense of aching pain and discomfort. This is generalized. Describes arthralgias and myalgias. Has a sense of malaise. More sleepy. Notes increasing sense of dry hacking cough and dyspnea with exertion. Denies chest heaviness, pressure, tightness, or pain. Acknowledges a sense of increasing weakness. Not interested in eating or drinking. Denies syncope or near-syncope. Denies nausea vomiting. Denies abdominal pain. Denies diarrhea or constipation. Acknowledges decreased urine output. Baseline Parkinson tremors are the same. Acknowledges a sense of intermittent confusion. Describes a sense of cloudiness of thinking. No recent trauma, injury, travel. Designates his family as his power of commercial real estate attorney for health should that be required. He is vacillating between DNR DNI resuscitation status in the event of cardiopulmonary demise and considering attempting resuscitation in the event of cardiopulmonary demise. Does not want to be kept alive in a persistent vegetative state. [facility] Medical History Acute kidney injury Adrenal hyperplasia Anxiety state, unspecified Arteriosclerotic cardiovascular disease Benign localized prostatic hyperplasia without lower urinary tract symptoms (LUTS) Benign neoplasm of colon, unspecified Cardiac pacemaker Cholelithiasis Chronic kidney disease, stage 3 unspecified Chronotropic incompetence COPD (chronic obstructive pulmonary disease) Coronary artery disease Degenerative joint disease of knee, right Dyslipidemia, goal LDL below 70 ED (erectile dysfunction) Emphysema of lung Gastric reflux Hearing loss Hyperkalemia Hyperlipidemia Hypertension Lung nodule Mineralocorticoid deficiency Orthostatic hypotension Other adrenocortical insufficiency Other cervical disc degeneration, unspecified cervical region Pain in unspecified shoulder Parkinson's disease Sensorineural hearing loss, bilateral Tremor, unspecified Ureteral dilatation Surgical History History of permanent cardiac pacemaker placement Social History Smoking Status: Never smoker How often do you have a drink containing alcohol: never How often do you have six or more drinks on one occasion: Never AUDIT-C Alcohol total score: 0 Non-prescribed substance use: denies use Caffeine: No service: No Meds Home Medications and Allergies Home Medications Medication Instructions Recorded Confirmed Type aspirin 81 mg tablet,delayed 81 mg PO DAILY 02/25/22 09/08/22 History release (Adult Aspirin Regimen) bromocriptine 2.5 mg tablet 2.5 mg PO DAILY 02/25/22 02/25/22 History carbidopa 25 mg-levodopa 100 mg 1 tab PO TID 02/25/22 09/08/22 History tablet (Sinemet) lorazepam 0.5 mg tablet (Ativan) 0.5 mg PO Q6H PRN 02/25/22 09/08/22 History nitroglycerin 0.4 mg sublingual 0.4 mg sublingual .Q5 PRN chest 02/25/22 09/08/22 History tablet pain oxycodone-acetaminophen 5 mg-325 1 tab PO Q6H PRN 02/25/22 03/01/22 History mg tablet sennosides 8.6 mg capsule (senna) 8.6 mg PO BID 02/25/22 09/08/22 History sildenafil 50 mg tablet (Viagra) 50 mg PO DAILY PRN 02/25/22 02/25/22 History simvastatin 40 mg tablet 40 mg PO DAILY 02/25/22 09/08/22 History trospium 60 mg capsule,extended 60 mg PO DAILY 02/25/22 09/08/22 History release 24 hr fludrocortisone 0.1 mg tablet 0.1 mg PO BID 09/08/22 09/08/22 History Allergies Allergy/AdvReac Type Severity Reaction Status Date / Time No Known Allergies Allergy Verified 09/08/22 16:39 Exam Narrative: Exam Narrative: Appears ill. No acute distress. Cooperative, friendly. Hard of hearing. Vision is grossly normal. Alert, oriented to self, place, time, situation. Dry buccal mucosa, dentition in fair repair. No icterus or conjunctival injection. Pupils equally round react to light and accommodation. Extraocular muscles intact. Neck is supple. Midline trachea. Normal thyroid. No JVD or hepatojugular reflux. No carotid bruits. No adenopathy in pre or postauricular chains, anterior-posterior cervical chains, supraclavicular fossa, submandibular or submental fossa, or axilla bilaterally. Lungs with rales bilaterally particularly in the bases. No wheezing or rhonchi. No CVA tenderness. Heart tones with regular rhythm, normal S1-S2. Abdomen with active bowel sounds, soft, nontender. Trace edema pretibially bilaterally. Tremor of bilateral upper extremities, not new. No asterixis. With my help he is able to transfer from supine to sitting, but with a great deal of effort. No other focal motor neurologic deficits. Const: Vital Signs, click to edit/add: Vital Signs - 24 hr 09/08/22 16:29 09/08/22 17:45 09/08/22 17:45 Temperature 101.1 F H Pulse Rate 63 Pulse Rate [Left P ulse Oximeter] Pulse Rate [Right Pulse Oximeter] 100 Respiratory Rate 18 Blood Pressure Blood Pressure [Ri ght Arm] Blood Pressure [Ri ght Upper Arm] 112/66 Pulse Oximetry 92 91 90 Oxygen Delivery Me thod Room Air 09/08/22 17:46 09/08/22 18:00 09/08/22 18:02 Temperature Pulse Rate 68 65 67 Pulse Rate [Left P ulse Oximeter] Pulse Rate [Right Pulse Oximeter] Respiratory Rate Blood Pressure 136/84 136/93 H Blood Pressure [Ri ght Arm] Blood Pressure [Ri ght Upper Arm] Pulse Oximetry 90 92 92 Oxygen Delivery Me thod 09/08/22 18:15 09/08/22 19:01 09/08/22 19:02 Temperature Pulse Rate 66 63 63 Pulse Rate [Left P ulse Oximeter] Pulse Rate [Right Pulse Oximeter] Respiratory Rate Blood Pressure 150/111 H Blood Pressure [Ri ght Arm] Blood Pressure [Ri ght Upper Arm] Pulse Oximetry 92 94 93 Oxygen Delivery Me thod 09/08/22 19:15 09/08/22 19:30 09/08/22 19:31 Temperature Pulse Rate 61 62 75 Pulse Rate [Left P ulse Oximeter] Pulse Rate [Right Pulse Oximeter] Respiratory Rate Blood Pressure 145/87 H Blood Pressure [Ri ght Arm] Blood Pressure [Ri ght Upper Arm] Pulse Oximetry 90 93 89 Oxygen Delivery Me thod 09/08/22 19:52 Temperature 99.2 F Pulse Rate Pulse Rate [Left P ulse Oximeter] 66 Pulse Rate [Right Pulse Oximeter] Respiratory Rate 20 Blood Pressure Blood Pressure [Ri ght Arm] 147/85 H Blood Pressure [Ri ght Upper Arm] Pulse Oximetry 95 Oxygen Delivery Me thod Room Air Documenting provider has reviewed patient's vital signs: yes Hospitalist - H&P: Result Labs Labs: Short CBC 09/08/22 Range/Units 17:15 WBC 17.42 H (4.50-11.00) K/uL Hgb 13.9 (13.5-17.5) gm/dL Hct 40.6 (37.0-53.0) % Plt Count 185 (140-440) K/uL BMP 09/08/22 17:19 Sodium 130 L Potassium 3.7 Chloride 97 Carbon Dioxide 29 BUN 28 Creatinine 1.1 Glucose 101 Calcium 8.0 L Liver Function 09/08/22 Range/Units 17:19 Total Bilirubin 1.5 (0.1-1.5) mg/dL AST 23 (12-35) U/L ALT 10 (4-50) U/L Alkaline Phosphatase 72 (40-150) U/L Albumin 3.2 L (3.3-5.0) g/dL Urine 09/08/22 Range/Units 18:47 Urine Color Yellow (Yellow) Urine Appearance Slightly Cloudy A (Clear) Urine pH 6.0 (5.0-8.5) Ur Specific [place] 1.015 (1.000-1.030) Urine Protein Trace A (Negative) Urine Glucose (UA) Negative (Negative) Imaging CT scan - chest: Attestation: I have reviewed the pertinent imaging results. Radiologist's impression: 1. Increased bibasilar lung stranding, suspicious for bibasilar pneumonia. Poorly defined opacity in the left lower lobe, partially obscured by infiltrate, may represent pneumonia although underlying malignancy is not excluded and follow-up is recommended. 2. New trace bilateral pleural effusions. 3. New mild mediastinal and right hilar lymphadenopathy, nonspecific. 4. Pulmonary emphysema. 5. No pulmonary emboli identified. 6. Nonacute additional findings as detailed above. Chest x-ray: Attestation: I have reviewed the pertinent imaging results. Radiologist's impression: 09/08/2022: Worsening bilateral diffuse airspace disease. 09/07/2022: 1. Abnormal interstitial and alveolar findings likely related to pulmonary edema/congestive heart failure. A diffuse inflammatory process may create this appearance. Normal pleural spaces. 2. Pacer normally located. 3. Enlarged central pulmonary arteries consistent with pulmonary hypertension. Similar to the prior exam. Assessment and Plan Assessment and plan (1) Community acquired pneumonia of both lower lobes: Status: Acute Assessment and Plan: 1. Reviewed with patient and his son, Oliverio. 2. They are agreeable to admission to the hospital. 3. Ceftriaxone 1 g IV Q 24 hours plus azithromycin 500 mg p.o. daily. 4. Venous thromboembolism prophylaxis. (2) COVID-19: Status: Acute Assessment and Plan: 1. With oxygen saturations dipping down to 90 at rest, and then into the lower to mid 80s with any exertion, will need to monitor his oxygen needs. Oxygen supplementation if needed. If he is requiring oxygen supplementation at all times then will need to consider instituting high-flow oxygen. 2. Dexamethasone 6 mg p.o. daily. Did review with patient and son the desired outcomes and potential adverse consequences of the same. 3. Recommended that we initiate remdesivir however the hospital is out of remdesivir. Patient is interested in the remdesivir. Patient's son states that he does not ?believe in? remdesivir. Given that the hospital does not have remdesivir at this time we may need to revisit this again should we get a shipment of remdesivir. We did discuss the fact that the hospital does not have remdesivir before making a decision to admit to the hospital. Both the patient and the son were in agreement that they wanted to be admitted to this hospital did not want to be transferred to another hospital even if they do have remdesivir there. 4. Venous thromboembolism prophylaxis. (3) Encephalopathy due to COVID-19 virus: Status: Acute Assessment and Plan: 1. Patient and son are aware that patient is high higher risk for steroid induced delirium. Even so they wish to go ahead and proceed with this line of therapy at this time. (4) COPD (chronic obstructive pulmonary disease): Status: Acute Assessment and Plan: 1. Dexamethasone for the COVID. 2. Will make ipratropium albuterol nebulizer available as needed. (5) Weakness: Status: Acute Assessment and Plan: 1. Physical therapy and occupational therapy consultation. 2. Was social media content specialist to assist with discharge disposition planning. Consider home health care verses short-term transitional care services. Plan 1. Continue with other supportive efforts including those directed toward Parkinson's disease, orthostatic hypotension, coronary artery disease. 2. Patient and son are agreeable to admission to the hospital.
[2022-09-08] MEDS: CARBIDOPA-LEVODOPA 25-100 TABLET 1 TAB PO (22:00)
[2022-09-08] MEDS: ENOXAPARIN 40 MG/0.4 ML INJ SUBCUT (22:00)
[2022-09-08] MEDS: SODIUM CHLORIDE 0.9 % (FLUSH) 10 ML SYRINGE 5 ML IVF ×3 (22:01→22:04)
[2022-09-08] MEDS: IPRAT-ALBUT 0.5-2.5 MG/3 ML NEB 1 NEB IH (22:03)
[2022-09-08] MEDS: NON-FORMULARY MEDICATION (Sennosides [Senna] 8.6 mg capsule) 8.6 EACH PO (22:04)
[2022-09-08] MEDS: FLUDROCORTISONE ACETATE 0.1 MG TABLET PO (22:34)
[2022-09-09] VITALS (11 sets, daily range): BP systolic 130–160; BP diastolic 78–106; PULSE 62–83; RESP 18–27; TEMP 36.1–37.7; O2SAT 90–94
[2022-09-09] MEDS: IPRAT-ALBUT 0.5-2.5 MG/3 ML NEB 1 NEB IH ×4 (04:50→22:09)
[2022-09-09 06:43] LABS: HCO3 VBG 32 mmol/L (21-28); Lactate* 1.9 mmol/L (0.5-1.9); PCO2 VBG 52 mmHG (40-50); PO2 VBG 20.2 mmHG (25-47)
[2022-09-09 06:48] LABS: Basophils Percent Auto 0.1 % (0.0-3.0); Hematocrit 43.5 % (37.0-53.0); Hemoglobin* 14.7 gm/dL (13.5-17.5); Immature Granulocytes Pct Auto 0.4 %; Lymphocytes Percent Auto 3.3 % (20-44); Mean Corpuscular HGB Conc 34 gm/dL (32-36); Mean Corpuscular Hemoglobin 30 pg (26-34); Mean Corpuscular Volume 89 fL (80-100); Monocytes Percent Auto 6.7 % (0.0-11.0); Neutrophils Percent Auto 89.5 % (42.0-72.0); Platelet Count* 187 K/uL (140-440); RDW Coefficient of Variation % 13.4 % (11.5-15.5); Red Blood Count 4.87 m/uL (4.30-5.90); White Blood Count* 12.84 K/uL (4.50-11.00)
--- NOTE | 2022-09-09 06:55 | PC.NURSE ---
VSS on RA. Patient is alert and oriented x3, able to verbalize needs to staff. Patient is continent of bowel and bladder, uses urinal at bedside. Requires assist of one with transfers. Pt denies pain this shift, continues to cough, scheduled neb treatments x2. Pt appears to be stable, call light within reach.
[2022-09-09 07:04] LABS: Slide Review Reflex No
[2022-09-09 07:09] LABS: Chloride* 97 mmol/L (96-114)
[2022-09-09 07:10] LABS: Albumin* 3.2 g/dL (3.3-5.0); Potassium* 3.9 mmol/L (3.6-5.1); Sodium* 132 mmol/L (135-149)
[2022-09-09 07:12] LABS: Est. Creatinine Clearance* 65.47; Estimated Glomerular Filt Rate 76 ml/min
[2022-09-09 07:13] LABS: Alanine Aminotransferase* 14 U/L (4-50); Alkaline Phosphatase* 72 U/L (40-150); Aspartate Amino Transferase* 25 U/L (12-35); Bilirubin Total* 1.5 mg/dL (0.1-1.5); Blood Urea Nitrogen* 26 mg/dL (7-30); Calcium* 8.4 mg/dL (8.4-10.6); Carbon Dioxide* 31 mmol/L (20-32); Glucose* 108 mg/dL (60-115); Phosphorus* 4.6 mg/dL (2.5-4.5); Total Protein* 6.1 g/dL (6.0-8.3)
[2022-09-09 07:14] LABS: Magnesium* 2.1 mg/dL (1.5-2.6)
[2022-09-09 07:16] LABS: C Reactive Protein* 8.8 mg/dL (0.5-1.0)
[2022-09-09 07:22] LABS: NT Pro B Type NatriureticPept* 2150 pg/mL
[2022-09-09 07:26] LABS: Procalcitonin* 0.36 ng/mL (<0.50)
[2022-09-09 07:53] LABS: Thyroid Stimulating Hormone* 0.954 uIU/mL (0.270-4.20)
[2022-09-09] MEDS: ASPIRIN 81 MG TABLET EC PO (09:36)
[2022-09-09] MEDS: FUROSEMIDE 20 MG TABLET PO (09:37)
[2022-09-09] MEDS: CARBIDOPA-LEVODOPA 25-100 TABLET 1 TAB PO ×3 (09:37→22:09)
[2022-09-09] MEDS: FLUDROCORTISONE ACETATE 0.1 MG TABLET PO ×2 (09:37→22:10)
[2022-09-09] MEDS: SIMVASTATIN 40 MG TABLET PO (09:37)
[2022-09-09] MEDS: SODIUM CHLORIDE 0.9 % (FLUSH) 10 ML SYRINGE 5 ML IVF ×2 (09:38→22:13)
[2022-09-09] MEDS: 0.9 % SODIUM CHLORIDE 250 ml IV (10:12)
[2022-09-09] MEDS: AZITHROMYCIN 500 MG in 0.9 % SODIUM CHLORIDE 250 ml 250 ML 255 MG IVPB (10:12)
--- NOTE | 2022-09-09 11:58 | PM.IMPN1 ---
Progress Note: A&P Assessment and plan (1) Community acquired pneumonia of both lower lobes: Problem details: -rocephin/azithromycin -oral dex, duo nebs -minimal oxygen -CXR tomorrow -trend WBC, inflammatory markers and resp distress Status: Acute (2) COVID-19: Problem details: no covid specific meds; we are out of remdesivir dexamethasone pulmonary rehab exercises Status: Acute (3) Encephalopathy due to COVID-19 virus: Problem details: mild Status: Acute (4) COPD (chronic obstructive pulmonary disease): Problem details: long standing Status: Acute (5) Adrenal insufficiency: Problem details: Keeping in mind he is on 20 mg of prednisone daily as well as 0.1 mg Florinef for a combined adrenal insufficiency treatment picture, we will continue the Florinef and replace his prednisone with 9 mg of dexamethasone daily. This will help cover his acute COVID infection as well as bilateral community-acquired pneumonia in addition to maintaining his current corticosteroid and mineral corticoid deficiencies. Status: Acute (6) Solitary lung nodule: Problem details: f/u imaging after 09/29 admission. LEFT LOWER LUNG NODULE Status: Acute (7) Parkinson's disease: Problem details: continue carbidopa and levodopa. Bromocriptine was on his med list but currently is not an active in hospital stay medicine Status: Acute (8) Sensorineural hearing loss, bilateral: Status: Acute (9) Hypertension: Problem details: hold meds as clinically appropriate Status: Acute (10) Orthostatic hypotension: Problem details: Continue with Florinef Status: Acute (11) Coronary artery disease: Problem details: s/p CAROL to RCA and CFX -CT angiogram 05/19/08: Significantly elevated calcium score - 672.1 (75-90th percentile). At least moderate LAD, circumflex, and RCA disease. Mildly enlarged ascending aorta 3.9 cm. -Angiogram/PCI 05/13/08: Stents to focal RCA and Cx lesions. Moderate LAD lesion. Normal EF. Plavix minimum of 1 yr, recommend 2 yrs or longer. Stress imaging in ~6 months to evaluate LAD lesion. - angio 11/07/14 patent stents in proximal RCA and circumflex, non flow limiting 40% lesion in LAD and 30 %in PDA Status: Acute (12) Cardiac pacemaker: Problem details: bradycardia, significant 2008 NOT MR SAFE Status: Acute Subjective Date Seen: 09/09/22 Interval history: Daily Progress Note - Hospital Medicine Day #: 2 CC: acute hypoxic resp failure; Covid, CAP, COPD, weakness OVERNIGHT UPDATES FROM STAFF & MED, LAB, IMAGING UPDATES -stable night. Oxygen demand increased minimally - now sats on RA are 85-90% with harsh cough -Tmax 99.9 -knows where he is and why T-max 99.9? 130/78 pulse 68 respiratory rate 20 to 27 Sats are not low 90s on 1-2 L per nasal cannula WBC count went from 17-12 Hemoglobin stable, platelet stable PH is 7.4 Sodium is 132 Procalamine. Reassuring. CRP is generally about the same 6.9-8.8 CTA from admission (2nd ER visit in two days) 1. Increased bibasilar lung stranding, suspicious for bibasilar pneumonia. Poorly defined opacity in the left lower lobe, partially obscured by infiltrate, may represent pneumonia although underlying malignancy is not excluded and follow-up is recommended. 2. New trace bilateral pleural effusions. 3. New mild mediastinal and right hilar lymphadenopathy, nonspecific. 4. Pulmonary emphysema. 5. No pulmonary emboli identified. 6. Nonacute additional findings as detailed above. Blood cultures remain negative Objective: Vitals: see above Lungs: rhonchi. Cardiac: Holosystolic ejection murmur. Not harsh. Best at the sternal border. Disposition/Potential discharge - Likely to return to previous living situation. Total time is 35 minutes with greater than 50% spent in counseling and coordination of care. Exam Const: Vital Signs, click to edit/add: Vital Signs - 24 hr 09/08/22 16:29 09/08/22 17:45 09/08/22 17:45 Temperature 101.1 F H Pulse Rate 63 Pulse Rate [Left P ulse Oximeter] Pulse Rate [Right Pulse Oximeter] 100 Respiratory Rate 18 Blood Pressure Blood Pressure [Ri ght Arm] Blood Pressure [Ri ght Upper Arm] 112/66 Pulse Oximetry 92 91 90 Oxygen Delivery Me thod Room Air Oxygen Flow Rate 09/08/22 17:46 09/08/22 18:00 09/08/22 18:02 Temperature Pulse Rate 68 65 67 Pulse Rate [Left P ulse Oximeter] Pulse Rate [Right Pulse Oximeter] Respiratory Rate Blood Pressure 136/84 136/93 H Blood Pressure [Ri ght Arm] Blood Pressure [Ri ght Upper Arm] Pulse Oximetry 90 92 92 Oxygen Delivery Me thod Oxygen Flow Rate 09/08/22 18:15 09/08/22 19:01 09/08/22 19:02 Temperature Pulse Rate 66 63 63 Pulse Rate [Left P ulse Oximeter] Pulse Rate [Right Pulse Oximeter] Respiratory Rate Blood Pressure 150/111 H Blood Pressure [Ri ght Arm] Blood Pressure [Ri ght Upper Arm] Pulse Oximetry 92 94 93 Oxygen Delivery Me thod Oxygen Flow Rate 09/08/22 19:15 09/08/22 19:30 09/08/22 19:31 Temperature Pulse Rate 61 62 75 Pulse Rate [Left P ulse Oximeter] Pulse Rate [Right Pulse Oximeter] Respiratory Rate Blood Pressure 145/87 H Blood Pressure [Ri ght Arm] Blood Pressure [Ri ght Upper Arm] Pulse Oximetry 90 93 89 Oxygen Delivery Me thod Oxygen Flow Rate 09/08/22 19:52 09/08/22 19:52 09/08/22 23:00 Temperature 99.2 F Pulse Rate Pulse Rate [Left P ulse Oximeter] 66 66 Pulse Rate [Right Pulse Oximeter] Respiratory Rate 20 18 18 Blood Pressure Blood Pressure [Ri ght Arm] 147/85 H Blood Pressure [Ri ght Upper Arm] Pulse Oximetry 95 95 Oxygen Delivery Me thod Room Air Room Air Oxygen Flow Rate 09/08/22 23:00 09/08/22 23:00 09/09/22 03:00 Temperature 97.4 F L 97.8 F Pulse Rate Pulse Rate [Left P ulse Oximeter] 63 Pulse Rate [Right Pulse Oximeter] Respiratory Rate 18 18 18 Blood Pressure Blood Pressure [Ri ght Arm] 145/80 H 160/87 H Blood Pressure [Ri ght Upper Arm] Pulse Oximetry 95 92 93 Oxygen Delivery Me thod Room Air Room Air Room Air Oxygen Flow Rate 09/09/22 07:00 09/09/22 07:00 09/09/22 07:00 Temperature 97 F L Pulse Rate Pulse Rate [Left P ulse Oximeter] 83 83 Pulse Rate [Right Pulse Oximeter] Respiratory Rate 20 20 20 Blood Pressure Blood Pressure [Ri ght Arm] 142/86 H Blood Pressure [Ri ght Upper Arm] Pulse Oximetry 90 90 Oxygen Delivery Me thod Room Air Room Air Oxygen Flow Rate 09/09/22 10:50 Temperature 99.9 F H Pulse Rate Pulse Rate [Left P ulse Oximeter] 68 Pulse Rate [Right Pulse Oximeter] Respiratory Rate 27 H Blood Pressure Blood Pressure [Ri ght Arm] 130/78 Blood Pressure [Ri ght Upper Arm] Pulse Oximetry 93 Oxygen Delivery Me thod Nasal Cannula Oxygen Flow Rate 1 Labs Labs: Laboratory Results - last 24 hr 09/08/22 09/08/22 09/08/22 17:15 17:19 17:19 WBC 17.42 H RBC 4.58 Hgb 13.9 Hct 40.6 MCV 89 MCH 30 MCHC 34 RDW Coeff of Petr 13.3 Plt Count 185 Neut % (Auto) 88.8 H Lymph % (Auto) 3.2 L [place] % (Auto) 7.2 Eos % (Auto) 0.3 Baso % (Auto) 0.1 Neut # (Auto) 15.50 H Lymph # (Auto) 0.60 L [place] # (Auto) 1.30 H Eos # (Auto) 0.10 Baso # (Auto) 0.00 VBG pH VBG pCO2 VBG pO2 VBG HCO3 Sodium 130 L Potassium 3.7 Chloride 97 Carbon Dioxide 29 BUN 28 Creatinine 1.1 Estimated Creat Clear 57.81 Estimated GFR 67 Glucose 101 Lactate 1.3 Calcium 8.0 L Phosphorus Magnesium Total Bilirubin 1.5 AST 23 ALT 10 Alkaline Phosphatase 72 C-Reactive Protein 6.9 H NT-Pro-B Natriuret Pep 2710 Total Protein 5.9 L Albumin 3.2 L Procalcitonin 0.33 TSH Urine Color Urine Appearance Urine pH Ur Specific [place] Urine Protein Urine Glucose (UA) Urine Ketones Urine Blood Urine Nitrite Urine Bilirubin Urine Urobilinogen Ur Leukocyte Esterase Urine RBC Urine WBC Ur Squamous Epith Cells Urine Bacteria SARS-CoV-2 (PCR) Influenza Type A (PCR) Influenza Type B (PCR) RSV (PCR) 09/08/22 09/08/22 09/08/22 17:19 17:19 18:47 WBC RBC Hgb Hct MCV MCH MCHC RDW Coeff of Petr Plt Count Neut % (Auto) Lymph % (Auto) [place] % (Auto) Eos % (Auto) Baso % (Auto) Neut # (Auto) Lymph # (Auto) [place] # (Auto) Eos # (Auto) Baso # (Auto) VBG pH 7.419 VBG pCO2 49 VBG pO2 35.2 VBG HCO3 32 H Sodium Potassium Chloride Carbon Dioxide BUN Creatinine Estimated Creat Clear Estimated GFR Glucose Lactate Calcium Phosphorus Magnesium Total Bilirubin AST ALT Alkaline Phosphatase C-Reactive Protein NT-Pro-B Natriuret Pep Total Protein Albumin Procalcitonin TSH Urine Color Yellow Urine Appearance Slightly Cloudy A Urine pH 6.0 Ur Specific [place] 1.015 Urine Protein Trace A Urine Glucose (UA) Negative Urine Ketones Trace A Urine Blood Negative Urine Nitrite Negative Urine Bilirubin 1+ A Urine Urobilinogen 2.0 A Ur Leukocyte Esterase Negative Urine RBC 0-2 Urine WBC 0-2 Ur Squamous Epith Cells Few Urine Bacteria None SARS-CoV-2 (PCR) POSITIVE SARS-CoV-2 A Influenza Type A (PCR) Negative PCR FLU A Influenza Type B (PCR) Negative PCR FLU B RSV (PCR) Negative PCR RSV 09/09/22 09/09/22 09/09/22 06:29 06:29 06:29 WBC 12.84 H RBC 4.87 Hgb 14.7 Hct 43.5 MCV 89 MCH 30 MCHC 34 RDW Coeff of Petr 13.4 Plt Count 187 Neut % (Auto) 89.5 H Lymph % (Auto) 3.3 L [place] % (Auto) 6.7 Eos % (Auto) 0.0 Baso % (Auto) 0.1 Neut # (Auto) 11.50 H Lymph # (Auto) 0.40 L [place] # (Auto) 0.90 Eos # (Auto) 0.00 Baso # (Auto) 0.00 VBG pH 7.400 VBG pCO2 52 H VBG pO2 20.2 L VBG HCO3 32 H Sodium 132 L Potassium 3.9 Chloride 97 Carbon Dioxide 31 BUN 26 Creatinine 1.0 Estimated Creat Clear 65.47 Estimated GFR 76 Glucose 108 Lactate 1.9 Calcium 8.4 Phosphorus 4.6 H Magnesium 2.1 Total Bilirubin 1.5 AST 25 ALT 14 Alkaline Phosphatase 72 C-Reactive Protein 8.8 H NT-Pro-B Natriuret Pep 2150 Total Protein 6.1 Albumin 3.2 L Procalcitonin 0.36 TSH Urine Color Urine Appearance Urine pH Ur Specific [place] Urine Protein Urine Glucose (UA) Urine Ketones Urine Blood Urine Nitrite Urine Bilirubin Urine Urobilinogen Ur Leukocyte Esterase Urine RBC Urine WBC Ur Squamous Epith Cells Urine Bacteria SARS-CoV-2 (PCR) Influenza Type A (PCR) Influenza Type B (PCR) RSV (PCR) 09/09/22 06:29 WBC RBC Hgb Hct MCV MCH MCHC RDW Coeff of Petr Plt Count Neut % (Auto) Lymph % (Auto) [place] % (Auto) Eos % (Auto) Baso % (Auto) Neut # (Auto) Lymph # (Auto) [place] # (Auto) Eos # (Auto) Baso # (Auto) VBG pH VBG pCO2 VBG pO2 VBG HCO3 Sodium Potassium Chloride Carbon Dioxide BUN Creatinine Estimated Creat Clear Estimated GFR Glucose Lactate Calcium Phosphorus Magnesium Total Bilirubin AST ALT Alkaline Phosphatase C-Reactive Protein NT-Pro-B Natriuret Pep Total Protein Albumin Procalcitonin TSH 0.954 Urine Color Urine Appearance Urine pH Ur Specific [place] Urine Protein Urine Glucose (UA) Urine Ketones Urine Blood Urine Nitrite Urine Bilirubin Urine Urobilinogen Ur Leukocyte Esterase Urine RBC Urine WBC Ur Squamous Epith Cells Urine Bacteria SARS-CoV-2 (PCR) Influenza Type A (PCR) Influenza Type B (PCR) RSV (PCR)
[2022-09-09] MEDS: dexAMETHasone 2 MG TABLET 9 MG PO (15:29)
--- NOTE | 2022-09-09 16:00 | PC.NURSE ---
Nursing Care Hours: [id number] Pt this shift calm and cooperative, alert and oriented. Forehead spO2 monitor showing 86-89% on RA. Started on NC 0.5 supplemental O2 which brought it up to 92-93% at rest. PT said that levels fell to 70's while moving from sitting to standing and hard to recover. Started on High Flow. [place] repeatedly going in to assist with returning the high flow NC to position. Loose BM this morning. Low urine output, 50-100 cc at a time, pt c/o burning sensation. U/o dark [place], no odor. Low appetite, refused to order lunch. Ensure provided and 100% intake.
[2022-09-09] MEDS: ACETAMINOPHEN 325 MG TABLET 650 MG PO (18:10)
--- NOTE | 2022-09-09 19:41 | PC.NURSE ---
Pt pleasant and cooperative with cares. Pt complains of achy sore body, Tylenol given per MAR. Pt continues to be on HighFlow. SBA with bedside urinal use.
[2022-09-09] MEDS: ENOXAPARIN 40 MG/0.4 ML INJ SUBCUT (22:08)
[2022-09-09] MEDS: SENNOSIDES 1 TAB TABLET PO (22:10)
[2022-09-09] MEDS: cefTRIAXone 1 GM in 0.9 % SODIUM CHLORIDE Mini-bag 100 ML IVPB (22:10)
[2022-09-10] VITALS (18 sets, daily range): BP systolic 131–177; BP diastolic 85–99; PULSE 58–86; RESP 18–30; TEMP 36.4–38.1; O2SAT 80–96
[2022-09-10] MEDS: IPRAT-ALBUT 0.5-2.5 MG/3 ML NEB 1 NEB IH ×3 (06:10→13:38)
--- NOTE | 2022-09-10 06:11 | PC.NURSE ---
pt is showing signs of confusion. Up numerous times wandering around the room and unable to tell staff what he needed. Removed nasal cannula during those times cause drop in oxygen saturation. Pt did not get much sleep. Denies pain or discomfort.
[2022-09-10 07:21] LABS: Hematocrit 43.1 % (37.0-53.0); Hemoglobin* 14.6 gm/dL (13.5-17.5); Mean Corpuscular HGB Conc 34 gm/dL (32-36); Mean Corpuscular Hemoglobin 30 pg (26-34); Mean Corpuscular Volume 89 fL (80-100); Platelet Count* 199 K/uL (140-440); Red Blood Count 4.84 m/uL (4.30-5.90); White Blood Count* 11.66 K/uL (4.50-11.00)
[2022-09-10 07:22] LABS: Slide Review Reflex No
[2022-09-10 07:24] LABS: HCO3 VBG 34 mmol/L (21-28); Lactate* 1.3 mmol/L (0.5-1.9); PCO2 VBG 50 mmHG (40-50); PO2 VBG 20.4 mmHG (25-47); pH VBG 7.443 (7.32-7.43)
[2022-09-10 07:44] LABS: Albumin* 3.2 g/dL (3.3-5.0); Chloride* 98 mmol/L (96-114); Sodium* 133 mmol/L (135-149)
[2022-09-10 07:45] LABS: Potassium* 3.9 mmol/L (3.6-5.1)
[2022-09-10 07:46] LABS: Creatinine* 0.9 mg/dL (0.5-1.5); Est. Creatinine Clearance* 65.47; Estimated Glomerular Filt Rate 86 ml/min
[2022-09-10 07:47] LABS: Alanine Aminotransferase* 16 U/L (4-50); Alkaline Phosphatase* 78 U/L (40-150); Aspartate Amino Transferase* 26 U/L (12-35); Bilirubin Total* 1.5 mg/dL (0.1-1.5); Blood Urea Nitrogen* 25 mg/dL (7-30); Carbon Dioxide* 32 mmol/L (20-32); Glucose* 115 mg/dL (60-115)
[2022-09-10 07:48] LABS: Calcium* 8.3 mg/dL (8.4-10.6); Magnesium* 2.3 mg/dL (1.5-2.6)
[2022-09-10 07:50] LABS: C Reactive Protein* 8.3 mg/dL (0.5-1.0)
[2022-09-10 07:58] LABS: NT Pro B Type NatriureticPept* 2520 pg/mL
[2022-09-10 08:00] LABS: Troponin I* 0.02 ng/mL (0.01-0.04)
[2022-09-10 08:04] LABS: Procalcitonin* 0.41 ng/mL (<0.50)
--- NOTE | 2022-09-10 08:25 | CRLHL7_ITS ---
For Patients: As a result of the Century Cures Act, medical imaging exams and procedure reports are released immediately into your electronic medical record. You may view this report before your referring provider. If you have questions, please contact your health care provider. Indication: COVID-19 positive results. Technique: Chest 1 view. Comparison: CT chest September 08, 2022. Findings/Impression: Cardiovascular and mediastinum: Heart size and vasculature are normal in caliber and appearance. Unchanged pacemaker. Lungs and pleural space: Interval worsening of a right lower lobe infiltrate suspicious for pneumonia. Diffuse interstitial edema is not significantly changed. No significant pleural effusion and no pneumothorax. Bones and soft tissues: No acute findings. Dictated by Julian Eden MD @ 09/10/2022 9:56:29 AM (Electronically Signed)
[2022-09-10] MEDS: SENNOSIDES 1 TAB TABLET PO ×2 (08:39→20:05)
[2022-09-10] MEDS: CARBIDOPA-LEVODOPA 25-100 TABLET 1 TAB PO ×3 (08:39→20:06)
[2022-09-10] MEDS: ASPIRIN 81 MG TABLET EC PO (08:39)
[2022-09-10] MEDS: FUROSEMIDE 20 MG TABLET PO (08:40)
[2022-09-10] MEDS: SODIUM CHLORIDE 0.9 % (FLUSH) 10 ML SYRINGE 5 ML IVF ×2 (08:40→20:06)
[2022-09-10] MEDS: FLUDROCORTISONE ACETATE 0.1 MG TABLET PO ×2 (08:40→20:10)
[2022-09-10] MEDS: OLANZapine 5 MG TAB.RAPDIS PO ×2 (08:40→20:06)
[2022-09-10] MEDS: SIMVASTATIN 40 MG TABLET PO (08:40)
--- NOTE | 2022-09-10 09:13 | RESP.RT ---
Patient up in chair, ion HFNC, questionable Pulse Oximeter readings. Bilateral Breath Sounds diminished, more so on Left Lower Lobe. Coached patient on using IS x10, good effort, 2000, with float in center. Coached patient on Aerobika x10, good effort, fair chest shake. Patient had productive cough with both treatments, creme, slightly green thick secretions, patient able to expectorate by self. Increased HFNC with low SaO2 average readings, Goal of keeping patient in upper 80's%, fore head probe was removed by patient, Nurse will place SaO2 sensor on foot with next visit to room. Will continue to follow.
[2022-09-10] MEDS: 0.9 % SODIUM CHLORIDE 250 ml IV (11:18)
[2022-09-10] MEDS: AZITHROMYCIN 500 MG in 0.9 % SODIUM CHLORIDE 250 ml 250 ML 255 MG IVPB (11:19)
--- NOTE | 2022-09-10 11:59 | RESP.RT ---
HFNC FiO2 increased to 55% by Nurse for Low SaO2, Nurse repositioned patient, to Left side UP, patient responded with SaO2 98%, reduced FiO2 to 50%, with Left side UP patient SaO2 96%.
[2022-09-10] MEDS: dexAMETHasone 2 MG TABLET 9 MG PO (13:35)
[2022-09-10] MEDS: PIPERACILLIN/TAZOBACTAM 3.375 GM in 0.9 % SODIUM CHLORIDE Mini-bag 100 ML IVPB ×2 (13:55→20:04)
[2022-09-10] MEDS: BARICITINIB 2 MG TAB 4 MG PO (17:05)
--- NOTE | 2022-09-10 17:41 | PM.IMPN1 ---
Progress Note: A&P Assessment and plan (1) Acute and chronic respiratory failure with hypoxia: Problem details: -I will make him CCU status -starting Baricitnib, changing antibiotics to Zosyn. Status post ceftriaxone and full dose of azithromycin. Continue oral dexamethasone at 9 mg p.o. q.day -daily chest x-rays -high-flow O2, trend gases and clinical course -appreciate the help of our RT Status: Acute (2) Community acquired pneumonia of both lower lobes: Problem details: -as above Status: Acute (3) COVID-19: Problem details: -as above Status: Acute (4) Encephalopathy due to COVID-19 virus: Problem details: -moderate -sublingual Zyprexa p.r.n. Status: Acute (5) COPD (chronic obstructive pulmonary disease): Problem details: long standing Status: Acute (6) Adrenal insufficiency: Problem details: -continue Florinef -on dexamethasone Status: Acute (7) Solitary lung nodule: Problem details: f/u imaging after 09/29 admission. LEFT LOWER LUNG NODULE Status: Acute (8) Parkinson's disease: Problem details: continue carbidopa and levodopa. Bromocriptine was on his med list but currently is not an active in hospital stay medicine Status: Acute (9) Sensorineural hearing loss, bilateral: Status: Acute (10) Hypertension: Problem details: hold meds as clinically appropriate Status: Acute (11) Coronary artery disease: Problem details: s/p CAROL to RCA and CFX -CT angiogram 05/19/08: Significantly elevated calcium score - 672.1 (75-90th percentile). At least moderate LAD, circumflex, and RCA disease. Mildly enlarged ascending aorta 3.9 cm. -Angiogram/PCI 05/13/08: Stents to focal RCA and Cx lesions. Moderate LAD lesion. Normal EF. Plavix minimum of 1 yr, recommend 2 yrs or longer. Stress imaging in ~6 months to evaluate LAD lesion. - angio 11/07/14 patent stents in proximal RCA and circumflex, non flow limiting 40% lesion in LAD and 30 %in PDA Status: Acute (12) Cardiac pacemaker: Problem details: bradycardia, significant 2009 NOT MR SAFE Status: Acute Subjective Date Seen: 09/10/22 Interval history: Daily Progress Note - Hospital Medicine Day #: 3 CC: acute hypoxic resp failure; Covid, CAP, COPD, weakness OVERNIGHT UPDATES FROM STAFF & MED, LAB, IMAGING UPDATES -patient is declining generally. He is much more agitated and confused today. -he is more hypoxic, requiring more high-flow oxygen. He is on 30 liters/minute at 40% FiO2. He has a low-grade fever. He has tachypneic. -we started him today on Baricitnib, and switched to ceftriaxone and azithromycin to IV Zosyn. He completed a course of azithromycin. -he is not typically on prednisone. However with his 1st ER evaluation prior to admission he had been given a dose of prednisone. I currently have him on 9 mg of Decadron daily. T-max has been 100.1, currently 100.6. Blood pressure is 135/87. Pulse rate 86. Respiratory rate is been 28-30. Pulse ox is in the low 80s if the takes his oxygen off he can be in the mid to low 90s on high-flow O2. CBC is stable with a mild leukocytosis. PH is stable 7.4 with a pCO2 of 50. This essentially is unchanged since admission. Mildly low sodium otherwise normal electrolytes and renal function. C reactive protein is stable but persistent at 8. Procalcitonin has been reassuring. Updated chest x-ray this morning Lungs and pleural space: Interval worsening of a right lower lobe infiltrate suspicious for pneumonia. Diffuse interstitial edema is not significantly changed. No significant pleural effusion and no pneumothorax. Bones and soft tissues: No acute findings. Blood cultures remain negative Objective: Disheveled, tired. At times pulling at lines and monitors. Other times he can demonstrate competence with vibratory peep and incentive spirometry. Vitals: see above Lungs: rhonchi. Cardiac: Holosystolic ejection murmur. Not harsh. Best at the sternal border. Disposition/Potential discharge - Likely to return to previous living situation. However, may need transfer prior to resolution. Total time is 35 minutes with greater than 50% spent in counseling and coordination of care. Exam Const: Vital Signs, click to edit/add: Vital Signs - 24 hr 09/09/22 18:00 09/09/22 20:20 09/09/22 22:26 Temperature 98.4 F Pulse Rate Pulse Rate [Left P ulse Oximeter] 67 Respiratory Rate 20 Blood Pressure [Ri ght Arm] 144/91 H Pulse Oximetry 94 Oxygen Delivery Me thod High Flow Nasal Ca nnula Oxygen Flow Rate 30 Fraction of Inspir ed Oxygen 25 25 09/09/22 23:39 09/09/22 23:39 09/10/22 01:48 Temperature 98.0 F Pulse Rate 84 Pulse Rate [Left P ulse Oximeter] 64 Respiratory Rate 20 20 Blood Pressure [Ri ght Arm] 140/85 H Pulse Oximetry 94 94 Oxygen Delivery Me thod High Flow Nasal Ca nnula High Flow Nasal Ca nnula Oxygen Flow Rate 30 30 Fraction of Inspir ed Oxygen 09/10/22 03:46 09/10/22 06:24 09/10/22 07:00 Temperature 98.4 F Pulse Rate Pulse Rate [Left P ulse Oximeter] 66 78 Respiratory Rate 20 22 Blood Pressure [Ri ght Arm] 177/99 H Pulse Oximetry 93 Oxygen Delivery Me thod High Flow Nasal Ca nnula Oxygen Flow Rate 25 Fraction of Inspir ed Oxygen 25 09/10/22 07:00 09/10/22 07:00 09/10/22 08:00 Temperature 97.6 F Pulse Rate Pulse Rate [Left P ulse Oximeter] 78 Respiratory Rate 22 22 Blood Pressure [Ri ght Arm] 140/99 H Pulse Oximetry 90 90 Oxygen Delivery Me thod High Flow Nasal Ca nnula High Flow Nasal Ca nnula Oxygen Flow Rate 20 20 Fraction of Inspir ed Oxygen 30 40 40 09/10/22 07:00 09/10/22 08:15 09/10/22 08:15 Temperature Pulse Rate 62 Pulse Rate [Left P ulse Oximeter] Respiratory Rate 22 Blood Pressure [Ri ght Arm] Pulse Oximetry 88 Oxygen Delivery Me thod High Flow Nasal Ca nnula Oxygen Flow Rate 30 30 Fraction of Inspir ed Oxygen 50 50 09/10/22 08:15 09/10/22 11:29 09/10/22 11:00 Temperature 100.1 F H Pulse Rate Pulse Rate [Left P ulse Oximeter] 76 Respiratory Rate 20 30 H Blood Pressure [Ri ght Arm] 165/91 H Pulse Oximetry 80 L 91 Oxygen Delivery Me thod High Flow Nasal Ca nnula High Flow Nasal Ca nnula Oxygen Flow Rate 30 30 Fraction of Inspir ed Oxygen 50 55 55 09/10/22 13:00 09/10/22 15:00 09/10/22 15:00 Temperature Pulse Rate Pulse Rate [Left P ulse Oximeter] 86 Respiratory Rate 28 H Blood Pressure [Ri t Arm] Pulse Oximetry Oxygen Delivery Me thod Oxygen Flow Rate Fraction of Inspir ed Oxygen 50 40 09/10/22 15:00 09/10/22 15:00 Temperature 100.6 F H Pulse Rate Pulse Rate [Left P ulse Oximeter] 86 Respiratory Rate 28 H 28 H Blood Pressure [Ri t Arm] 135/87 Pulse Oximetry 96 96 Oxygen Delivery Me thod High Flow Nasal Ca nnula High Flow Nasal Ca nnula Oxygen Flow Rate 30 30 Fraction of Inspir ed Oxygen 40 40 Labs Labs: Laboratory Results - last 24 hr 09/10/22 09/10/22 09/10/22 06:50 06:50 06:50 WBC 11.66 H RBC 4.84 Hgb 14.6 Hct 43.1 MCV 89 MCH 30 MCHC 34 Plt Count 199 VBG pH 7.443 H VBG pCO2 50 VBG pO2 20.4 L VBG HCO3 34 H Sodium 133 L Potassium 3.9 Chloride 98 Carbon Dioxide 32 BUN 25 Creatinine 0.9 Estimated Creat Clear 65.47 Estimated GFR 86 Glucose 115 Lactate 1.3 Calcium 8.3 L Magnesium 2.3 Total Bilirubin 1.5 AST 26 ALT 16 Alkaline Phosphatase 78 Troponin I 0.02 C-Reactive Protein 8.3 H NT-Pro-B Natriuret Pep 2520 Total Protein 6.0 Albumin 3.2 L Procalcitonin 0.41
--- NOTE | 2022-09-10 19:39 | PC.NURSE ---
Shift Note [id number]: Pt very confused this morning, standing up and self transferring. Poured out his water and used the cup as a urinal, took off gown and tangled in tele and HFNC removed. SpO2 in the 70's. Pt was pleasant and easily reoriented but minutes later resumed his behaviors. He was observed trying to use neb upside down and made odd/confused statements throughout the day. Increased HFNC needs as high as 30LPM/55%. Pt is currently 92% on 30LPM/40%FiO2. Son Oliverio concerned about addition of Baricitinib to treatment plan and would like to discuss the POC with MD tomorrow. He states he needs more information on this medication before he is comfortable with pt receiving. SS consult also put in as family verbalizes concerns pt may need increased services on discharge.
--- NOTE | 2022-09-10 19:50 | PC.NURSE ---
elevated temps, 100.1 and 100.6. Pt good at utilizing Aerobika with assistance and cues.
[2022-09-10] MEDS: ENOXAPARIN 40 MG/0.4 ML INJ SUBCUT (20:06)
[2022-09-10] MEDS: LORazepam 0.5 MG TABLET PO (22:07)
[2022-09-11] VITALS (19 sets, daily range): BP systolic 136–168; BP diastolic 77–111; PULSE 59–78; RESP 18–28; TEMP 36.4–36.9; O2SAT 91–100
[2022-09-11] MEDS: PIPERACILLIN/TAZOBACTAM 3.375 GM in 0.9 % SODIUM CHLORIDE Mini-bag 100 ML IVPB ×4 (01:56→19:58)
--- NOTE | 2022-09-11 04:49 | PC.NURSE ---
Addendum entered by Ruth Hughes RN 09/11/22 06:16: with activity (up to use urinal or BSC) sats drop, patient becomes agitated and has difficult time following direction, once back laying in bed sats remain above 90 and patient responds appropriately and able to follow direction well. IS and arobika encouraged throughout the shift and patient able to demonstrate appropriate use. able to prone for about an hour-2 hours at a time before returning to a side lying position. tele has shown a paced rhythm Original Note: [id number]: patient had 1:1 sitter until 2330. patient has been asleep most of the night, sats remain low-mid 90s on hiFlo oxygen; see charting for settings. patient continues to be confused but easily directable, weakness, stands up at bedside to use urinal with assist X1 walker and gait belt. afebrile overnight, encouraged pronation, patient tolerates side lying position best for sleep.
--- NOTE | 2022-09-11 07:00 | CRLHL7_ITS ---
For Patients: As a result of the Cures Act, medical imaging exams and procedure reports are released immediately into your electronic medical record. You may view this report before your referring provider. If you have questions, please contact your health care provider. INDICATION: f/u covid TECHNIQUE: Chest 1 view COMPARISON: 09/08/2022, 09/10/2022 FINDINGS: Chronic COPD/emphysema/chronic bronchitis. Cardiomegaly. Atherosclerotic disease. Tortuosity aorta. No pleural effusion. No pneumothorax. Parenchymal densities within the right midlung zone and left lung base. IMPRESSION: Mild bilateral infiltrates superimposed upon chronic lung disease. Dictated by Oliverio Cisneros MD @ 09/11/2022 7:09:03 AM (Electronically Signed)
--- NOTE | 2022-09-11 08:15 | P.IMPN_ITS ---
Progress Note: A&P Assessment and plan (1) Acute and chronic respiratory failure with hypoxia: Problem details: -CCU status -Day 2 BariIsmael martn. Has completed 5 doses of Azithromycin (previous ER visit this med was started) Status post ceftriaxone and full dose of azithromycin. -Day 4 Decadron -daily chest x-rays -high-flow O2, trend gases and clinical course -appreciate the help of our RT Status: Acute (2) Community acquired pneumonia of both lower lobes: Problem details: -as above Status: Acute (3) COVID-19: Problem details: PCR positive 09/08/22, symptom onset. symptom onset 09/05/22 Status: Acute (4) Encephalopathy due to COVID-19 virus: Problem details: -moderate -sublingual Zyprexa p.r.n. Status: Acute (5) COPD (chronic obstructive pulmonary disease): Problem details: long standing Status: Acute (6) Adrenal insufficiency: Problem details: -continue Florinef -on dexamethasone Status: Acute (7) Solitary lung nodule: Problem details: f/u imaging after 09/29 admission. LEFT LOWER LUNG NODULE Status: Acute (8) Parkinson's disease: Problem details: continue carbidopa and levodopa. Bromocriptine was on his med list but currently is not an active in hospital stay medicine Status: Acute (9) Sensorineural hearing loss, bilateral: Status: Acute (10) Hypertension: Problem details: hold meds as clinically appropriate Status: Acute (11) Coronary artery disease: Problem details: s/p CAROL to RCA and CFX -CT angiogram 05/19/08: Significantly elevated calcium score - 672.1 (75-90th percentile). At least moderate LAD, circumflex, and RCA disease. Mildly enlar ged ascending aorta 3.9 cm. -Angiogram/PCI 05/13/08: Stents to focal RCA and Cx lesions. Moderate LAD lesion. Normal EF. Plavix minimum of 1 yr, recommend 2 yrs or longer. Stress imaging in ~6 months to evaluate LAD lesion. - angio 11/07/14 patent stents in proximal RCA and circumflex, non flow limiting 40% lesion in LAD and 30 %in PDA Status: Acute (12) Cardiac pacemaker: Problem details: bradycardia, significant 2009 NOT MR SAFE Status: Acute Subjective Date Seen: 09/11/22 Interval history: Daily Progress Note - Hospital Medicine Day #: 4 Day 2 Zosyn, Baricitinib Day 4 of dexamethasone (previous rocephin and azithromycin) CC: acute hypoxic resp failure; Covid, CAP (bilateral but worse in the RLL), COPD, weakness OVERNIGHT UPDATES FROM STAFF & MED, LAB, IMAGING UPDATES -patient is declining generally. He is much more agitated and confused today. -he is more hypoxic, requiring more high-flow oxygen. He is on 30 liters/minute at 40% FiO2. He has a low-grade fever. He has tachypneic. -RT reports he is producing tons of sputum; filling his aerobika (vib peep) with a least 10cc of greenish phelgm every 8 hours or so. -09/10/22 we started him on Baricitnib, and switched from ceftriaxone and azithromycin to IV Zosyn. He completed a course of azithromycin. -he is not typically on prednisone. However with his 1st ER evaluation prior to admission he had been given a dose of prednisone. I currently have him on 9 mg of Decadron daily. Blood pressure is 163/99. Pulse 60. He is afebrile. T-max was yesterday afternoon at 100.6. His respiratory rate has settled down nicely from the high 20s to about 18 all night. His high-flow O2 settings have remained stable at 40% CO2, 30 L. Updated chest x-ray this morning COMPARISON: 09/08/2022, 09/10/2022 FINDINGS: Chronic COPD/emphysema/chronic bronchitis. Cardiomegaly. Atherosclerotic disease. Tortuosity aorta. No pleural effusion. No pneumothorax. Parenchymal densities within the right midlung zone and left lung base. IMPRESSION: Mild bilateral infiltrates superimposed upon chronic lung disease. Blood cultures remain negative Objective: Disheveled, tired. At times pulling at lines and monitors. Other times he can demonstrate competence with vibratory peep and incentive spirometry. Vitals: see above Lungs: rhonchi bilaterally Cardiac: Holosystolic ejection murmur. Not harsh. Best at the sternal border. Disposition/Potential discharge - Likely to return to previous living situation. However, may need transfer prior to resolution. Total time is 35 minutes with greater than 50% spent in counseling and coordination of care. Exam Const: Vital Signs, click to edit/add: Vital Signs - 24 hr 09/10/22 11:29 09/10/22 11:00 09/10/22 13:00 Temperature 100.1 F H Pulse Rate Pulse Rate [Left P ulse Oximeter] 76 Respiratory Rate 30 H Blood Pressure Blood Pressure [Ri ght Arm] 165/91 H Pulse Oximetry 91 Oxygen Delivery Me thod High Flow Nasal Ca nnula Oxygen Flow Rate 30 Fraction of Inspir ed Oxygen 55 55 50 09/10/22 15:00 09/10/22 15:00 09/10/22 15:00 Temperature Pulse Rate Pulse Rate [Left P ulse Oximeter] 86 Respiratory Rate 28 H 28 H Blood Pressure Blood Pressure [Ri ght Arm] Pulse Oximetry 96 Oxygen Delivery Me thod High Flow Nasal Ca nnula Oxygen Flow Rate 30 Fraction of Inspir ed Oxygen 40 40 09/10/22 15:00 09/10/22 17:00 09/10/22 15:00 Temperature 100.6 F H Pulse Rate 63 Pulse Rate [Left P ulse Oximeter] 86 Respiratory Rate 28 H Blood Pressure Blood Pressure [Ri ght Arm] 135/87 Pulse Oximetry 96 Oxygen Delivery Me thod High Flow Nasal Ca nnula Oxygen Flow Rate 30 Fraction of Inspir ed Oxygen 40 40 09/10/22 20:53 09/10/22 20:53 09/10/22 21:31 Temperature 98.7 F Pulse Rate 69 Pulse Rate [Left P ulse Oximeter] 60 Respiratory Rate 20 Blood Pressure Blood Pressure [Ri ght Arm] 131/85 Pulse Oximetry 96 Oxygen Delivery Me thod High Flow Nasal Ca nnula Oxygen Flow Rate 30 Fraction of Inspir ed Oxygen 40 40 09/10/22 22:00 09/10/22 22:57 09/10/22 22:57 Temperature Pulse Rate Pulse Rate [Left P ulse Oximeter] 60 Respiratory Rate 18 18 Blood Pressure Blood Pressure [Ri ght Arm] Pulse Oximetry 93 Oxygen Delivery Me thod High Flow Nasal Ca nnula Oxygen Flow Rate 30 Fraction of Inspir ed Oxygen 40 40 09/10/22 22:57 09/10/22 22:55 09/11/22 00:11 Temperature 98 F 98 F Pulse Rate 58 L Pulse Rate [Left P ulse Oximeter] Respiratory Rate 18 18 Blood Pressure 131/90 H Blood Pressure [Ri ght Arm] 131/85 Pulse Oximetry 93 93 Oxygen Delivery Me thod High Flow Nasal Ca nnula Oxygen Flow Rate 30 Fraction of Inspir ed Oxygen 40 40 09/11/22 00:11 09/11/22 02:00 09/11/22 02:00 Temperature 97.6 F Pulse Rate Pulse Rate [Left P ulse Oximeter] 61 61 Respiratory Rate 18 18 Blood Pressure Blood Pressure [Ri ght Arm] 168/111 H Pulse Oximetry 96 Oxygen Delivery Me thod High Flow Nasal Ca nnula Oxygen Flow Rate 30 Fraction of Inspir ed Oxygen 40 40 09/11/22 02:00 09/11/22 04:00 09/11/22 04:00 Temperature 97.8 F Pulse Rate Pulse Rate [Left P ulse Oximeter] 59 L 60 Respiratory Rate 18 18 Blood Pressure Blood Pressure [Ri ght Arm] 163/92 H 142/87 H Pulse Oximetry 95 95 Oxygen Delivery Me thod High Flow Nasal Ca nnula High Flow Nasal Ca nnula Oxygen Flow Rate 30 30 Fraction of Inspir ed Oxygen 40 40 40 09/11/22 06:00 09/11/22 06:00 09/11/22 06:00 Temperature 98 F Pulse Rate Pulse Rate [Left P ulse Oximeter] 60 60 Respiratory Rate 18 18 Blood Pressure Blood Pressure [Ri ght Arm] 163/99 H Pulse Oximetry 95 Oxygen Delivery Me thod High Flow Nasal Ca nnula Oxygen Flow Rate 30 Fraction of Inspir ed Oxygen 40 40
[2022-09-11 08:22] LABS: HCO3 VBG 36 mmol/L (21-28); Ionized Calcium* 1.08 mmol/L (1.11-1.30); Lactate* 0.9 mmol/L (0.5-1.9); PCO2 VBG 57 mmHG (40-50); PO2 VBG 29.1 mmHG (25-47); pH VBG 7.409 (7.32-7.43)
[2022-09-11 08:28] LABS: Hematocrit 41.9 % (37.0-53.0); Hemoglobin* 13.8 gm/dL (13.5-17.5); Mean Corpuscular HGB Conc 33 gm/dL (32-36); Mean Corpuscular Hemoglobin 30 pg (26-34); Mean Corpuscular Volume 91 fL (80-100); Platelet Count* 210 K/uL (140-440); Red Blood Count 4.61 m/uL (4.30-5.90); White Blood Count* 11.67 K/uL (4.50-11.00)
[2022-09-11 08:34] LABS: Slide Review Reflex No
[2022-09-11 08:45] LABS: Albumin* 2.8 g/dL (3.3-5.0); Chloride* 100 mmol/L (96-114); Sodium* 134 mmol/L (135-149)
[2022-09-11 08:46] LABS: Potassium* 4.5 mmol/L (3.6-5.1)
[2022-09-11 08:48] LABS: Alanine Aminotransferase* 12 U/L (4-50); Alkaline Phosphatase* 61 U/L (40-150); Aspartate Amino Transferase* 29 U/L (12-35); Bilirubin Total* 1.5 mg/dL (0.1-1.5); Blood Urea Nitrogen* 28 mg/dL (7-30); Carbon Dioxide* 33 mmol/L (20-32); Est. Creatinine Clearance* 65.47; Estimated Glomerular Filt Rate 76 ml/min; Glucose* 94 mg/dL (60-115); Total Protein* 5.4 g/dL (6.0-8.3)
[2022-09-11 08:49] LABS: Calcium* 7.9 mg/dL (8.4-10.6); Magnesium* 2.5 mg/dL (1.5-2.6)
[2022-09-11] MEDS: SIMVASTATIN 40 MG TABLET PO (08:49)
[2022-09-11] MEDS: FLUDROCORTISONE ACETATE 0.1 MG TABLET PO ×2 (08:49→20:00)
[2022-09-11] MEDS: CARBIDOPA-LEVODOPA 25-100 TABLET 1 TAB PO ×4 (08:50→19:59)
[2022-09-11] MEDS: FUROSEMIDE 20 MG TABLET PO (08:50)
[2022-09-11] MEDS: SODIUM CHLORIDE 0.9 % (FLUSH) 10 ML SYRINGE 5 ML IVF ×2 (08:50→20:00)
[2022-09-11] MEDS: 0.9 % SODIUM CHLORIDE 250 ml IV (08:50)
[2022-09-11] MEDS: ASPIRIN 81 MG TABLET EC PO (08:50)
[2022-09-11 08:51] LABS: C Reactive Protein* 8.1 mg/dL (0.5-1.0)
[2022-09-11 09:12] LABS: NT Pro B Type NatriureticPept* 2770 pg/mL
[2022-09-11 11:21] LABS: Troponin I* < 0.01 ng/mL (0.01-0.04)
--- NOTE | 2022-09-11 12:06 | RESP.RT ---
Patient sitting up in chair on High Flow Nasal Cannula (HFNC); FiO2 45%, Flow 30 Lpm, Temperature 36 degrees (C). SaO2 91%, decreased FiO2 35%, Flow to 20 Lpm, less than 2 minutes patient decreased SaO2 85%, returned patient to FiO2 40%, Flow 30 Lpm. Multiply times in last 48 hours wean of Oxygen by 5% or more and Flow by 5 Lpm or more have failed. Each time patient has to have Oxygen and Flow returned to FiO2 40% or more and Flow to at least 30 Lpm. Patient uses PEP therapy; Aerobika with coaching by RT, Nurse, and some Family. Patient make fair to good effort, promotes rasping moist, productive cough with thick creme colored slightly green tinged secretions. Aerobika is cleaned during the day, this time filled with at least 10 cc of thick creme colored slightly green tinged secretions, it was cleaned and new filter was placed on device. Nursing made note to empty and clean per shift and change filter when soiled. Incentive Spirometry (IS) done with coaching, fair to good effort, promotes cough for same secretions noted. Bilateral Breath sounds noted diminished all cedeño, with fine crackles, and expiratory wheeze noted, Left Lower lobe more diminished. Wheeze clears slightly with cough. Patient has occasional lapses of orientation when coaching PEP, IS, and answering questions. Goal is to continue HFNC weaning attempts. Promote secretion mobilization with PEP and IS through coaching patient.
[2022-09-11] MEDS: dexAMETHasone 2 MG TABLET 9 MG PO (14:10)
[2022-09-11] MEDS: BARICITINIB 2 MG TAB 4 MG PO (14:12)
[2022-09-11] MEDS: FUROSEMIDE 10 MG/ML inj 40 MG IVP (14:18)
[2022-09-11] MEDS: OLANZapine 5 MG TAB.RAPDIS PO (16:52)
--- NOTE | 2022-09-11 18:21 | PC.NURSE ---
Shift Note : Pt required 30LPM/45% FiO2 this morning to keep SpO2 in low 90's. Noticeable desaturations with exertion to the mid 80's that took several minutes to rebound at rest. This afternoon however, pt was weaned to 30LPM/35%FiO2 and has done well for several hours. SpO2 92-93% at rest and he denies SOB. Ongoing mild/moderate confusion. Easily reoriented but doesn't last long. Pt did well with sons visiting most of the day to frequently reorient his, but once alone in his room he began to attempt self transfer more often and pull/pick at IV site, continuous pulse ox, and removing HFNC. Pt continued to state he wanted to rest but would climb out of bed and be confused as to what he was trying to accomplish. Zyprexa given just after dinner PO. He is able to use the urinal with assist x1, he has had increased incontinent episodes throughout the day even prior to IVP Lasix, but does seem to have some recognition of the urge to void. Good appetite, eating most of each meal. Using aerobika independently and with prompts from staff and family. He has extensive sputum production, aerobika cleaned out today by RT. Afebrile today.
[2022-09-11] MEDS: LORazepam 0.5 MG TABLET PO (19:45)
[2022-09-11] MEDS: ENOXAPARIN 40 MG/0.4 ML INJ SUBCUT (19:59)
[2022-09-11] MEDS: SENNOSIDES 1 TAB TABLET PO (19:59)
[2022-09-12] VITALS (9 sets, daily range): BP systolic 142–185; BP diastolic 82–107; PULSE 60–68; RESP 18–24; TEMP 36.2–36.6; O2SAT 87–93
[2022-09-12] MEDS: PIPERACILLIN/TAZOBACTAM 3.375 GM in 0.9 % SODIUM CHLORIDE Mini-bag 100 ML IVPB ×2 (01:29→08:42)
--- NOTE | 2022-09-12 05:08 | PC.NURSE ---
[id number]: patient assist X1 walker and gait belt from bed to chair and back. occasionally takes HFNC off and sats drop to lows 80s, when re-applied sats rise back to low 90s within a few minutes. arobika and IS encouraged and patient able to demonstrate appropriate use, coughs cream colored sputum after use. patient has been making a large amounts of urine, 4X heavy urine brief. FiO2 increased to 45% at start of the night due to patient sats mid 80s, sats maintained 90-93% on 30L 45% while asleep.
[2022-09-12 06:16] LABS: HCO3 VBG 35 mmol/L (21-28); Lactate* 0.8 mmol/L (0.5-1.9); PCO2 VBG 50 mmHG (40-50); pH VBG 7.456 (7.32-7.43)
[2022-09-12 06:33] LABS: Hematocrit 41.3 % (37.0-53.0); Hemoglobin* 13.8 gm/dL (13.5-17.5); Mean Corpuscular HGB Conc 33 gm/dL (32-36); Mean Corpuscular Hemoglobin 30 pg (26-34); Mean Corpuscular Volume 90 fL (80-100); Platelet Count* 239 K/uL (140-440); Red Blood Count 4.58 m/uL (4.30-5.90); White Blood Count* 8.86 K/uL (4.50-11.00)
[2022-09-12 06:36] LABS: Slide Review Reflex No
[2022-09-12 06:39] LABS: Albumin* 2.6 g/dL (3.3-5.0); Chloride* 102 mmol/L (96-114); Sodium* 136 mmol/L (135-149)
[2022-09-12 06:40] LABS: Potassium* 3.8 mmol/L (3.6-5.1)
[2022-09-12 06:42] LABS: Alkaline Phosphatase* 69 U/L (40-150); Aspartate Amino Transferase* 28 U/L (12-35); Carbon Dioxide* 36 mmol/L (20-32); Creatinine* 1.1 mg/dL (0.5-1.5); Est. Creatinine Clearance* 59.52; Estimated Glomerular Filt Rate 67 ml/min; Total Protein* 5.1 g/dL (6.0-8.3)
[2022-09-12 06:43] LABS: Alanine Aminotransferase* 11 U/L (4-50); Blood Urea Nitrogen* 30 mg/dL (7-30); Calcium* 7.7 mg/dL (8.4-10.6); Glucose* 131 mg/dL (60-115); Magnesium* 2.3 mg/dL (1.5-2.6)
[2022-09-12 06:45] LABS: C Reactive Protein* 5.8 mg/dL (0.5-1.0)
[2022-09-12 06:58] LABS: NT Pro B Type NatriureticPept* 2110 pg/mL; Troponin I* < 0.01 ng/mL (0.01-0.04)
[2022-09-12 06:59] LABS: Procalcitonin* 0.37 ng/mL (<0.50)
--- NOTE | 2022-09-12 07:00 | CRLHL7_ITS ---
For Patients: As a result of the Century Cures Act, medical imaging exams and procedure reports are released immediately into your electronic medical record. You may view this report before your referring provider. If you have questions, please contact your health care provider. INDICATION: COVID pneumonia COMPARISON: September 11, 2022 at 6:46 a.m. TECHNIQUE: Single-view examination September 12, 2022 at 6:56 a.m. FINDINGS: TUBES AND LINES: Pacer with leads terminating in the right atrium and the right ventricle HEART AND MEDIASTINUM: Mildly enlarged heart unchanged in appearance.. LUNGS AND PLEURAL SPACES: Moderate diffuse multifocal airspace process bilaterally, right greater than left. Essentially unchanged within technical variations.No pleural effusion or pneumothorax OSSEOUS STRUCTURES: Age-appropriate appearance. No acute focal finding. IMPRESSION: Moderate diffuse multifocal airspace process bilaterally, right greater than left. No pleural effusion or pneumothorax. Essentially unchanged given technical variations. Dictated by Dell Dutta MD @ 09/12/2022 7:14:57 AM (Electronically Signed)
[2022-09-12] MEDS: SENNOSIDES 1 TAB TABLET PO (08:43)
[2022-09-12] MEDS: FUROSEMIDE 20 MG TABLET PO (08:44)
[2022-09-12] MEDS: SIMVASTATIN 40 MG TABLET PO (08:44)
[2022-09-12] MEDS: ASPIRIN 81 MG TABLET EC PO (08:44)
[2022-09-12] MEDS: SODIUM CHLORIDE 0.9 % (FLUSH) 10 ML SYRINGE 5 ML IVF (08:45)
[2022-09-12] MEDS: 0.9 % SODIUM CHLORIDE 250 ml IV (08:46)
[2022-09-12] MEDS: CARBIDOPA-LEVODOPA 25-100 TABLET 1 TAB PO (10:00)
[2022-09-12] MEDS: FLUDROCORTISONE ACETATE 0.1 MG TABLET PO (10:00)
--- NOTE | 2022-09-12 10:27 | RESP.RT ---
Pt on 100% HFNC now, unable to maintain saturations of 90% PT has been repositioned, up in chair, now back to bed. IS and Aerobika performed. Provider aware, consulting [place]. IF Pt stays here, we will need to begin proning.
[2022-09-12] MEDS: IPRAT-ALBUT 0.5-2.5 MG/3 ML NEB 1 NEB IH (11:23)
--- NOTE | 2022-09-12 12:34 | RESP.RT ---
Nursing and I placed pt on his R side. Saturations improved. Per nursing they had dropped to 82% on 100% FIO2 Suspect we will be repositioning and titrating oxygen as indicated. PT is very tired. BBS Coarse
--- NOTE | 2022-09-12 13:50 | PC.SOCIAL ---
Met with pt.'s son and daughter to discuss discharge plans. They said with pt.'s Parkinsons it had not been going well at home prior to pt. getting sick. Their mother has said she cannot care for him at home. They would like to pursue AL for the both of them but understand this is a process so would like to have pt. go to a SNF when ready for discharge. They understand that pt. will need to be 10 days out from positive hospital COVID test which would be 09/18. Gave family a list of area assisted livings to start calling for availability and a [facility]TC MA application. java web services developer will continue to work on discharge planning needs.
--- NOTE | 2022-09-12 14:34 | P.DS_ITS ---
Transfer Discharge Sum: Prov Provider Time Seen by Provider: 09:35 Date Seen: 09/12/22 Date of admission: 09/08/22 20:28 Primary care physician: Enid Johnston PA-C Consults: 09/08/22 20:28 Consult to Occupational Therapy [CONS] Routine Comment: Reason(s) for OT Consult:: Evaluate and Treat Any Restrictions?:: No Restrictions Consult to Physical Therapy [CONS] Routine Comment: Reason(s) for PT Consult:: Evaluate and Treat Any Restrictions?:: No Restrictions Consult to Security Systems Integrator [CONS] Routine Comment: Reason for Consult:: Discharge Planning Needs 09/10/22 19:36 Consult to Security Systems Integrator [CONS] Routine Comment: Reason for Consult:: Discharge Planning Needs Attending physician on discharge: Leighann Reyna Anticipated date of transfer: 09/12/22 Receiving physician/facility: [facility] DS: Diagnosis Discharge Diagnosis (1) Acute and chronic respiratory failure with hypoxia: Status: Acute Problem details: -CCU status -Day 2 Baricitnib,Zosyn. Has completed 5 doses of Azithromycin (previous ER visit this med was started) Status post ceftriaxone and full dose of azithromycin. -Day 4 Decadron -daily chest x-rays -high-flow O2, trend gases and clinical course -appreciate the help of our RT (2) Cardiac pacemaker: Status: Acute Problem details: bradycardia, significant 2009 NOT MR SAFE (3) Coronary artery disease: Status: Acute Problem details: s/p CAROL to RCA and CFX -CT angiogram 05/19/08: Significantly elevated calcium score - 672.1 (75-90th percentile). At least moderate LAD, circumflex, and RCA disease. Mildly enlarged ascending aorta 3.9 cm. -Angiogram/PCI 05/13/08: Stents to focal RCA and Cx lesions. Moderate LAD lesion. Normal EF. Plavix minimum of 1 yr, recommend 2 yrs or longer. Stress imaging in ~6 months to evaluate LAD lesion. - angio 11/07/14 patent stents in proximal RCA and circumflex, non flow limiting 40% lesion in LAD and 30 %in PDA (4) Orthostatic hypotension: Status: Acute Problem details: Continue with Florinef (5) Solitary lung nodule: Status: Acute Problem details: f/u imaging after 09/29 admission. LEFT LOWER LUNG NODULE (6) Adrenal insufficiency: Status: Acute Problem details: -continue Florinef -on dexamethasone (7) Parkinson's disease: Status: Acute Problem details: continue carbidopa and levodopa. Bromocriptine was on his med list but currently is not an active in hospital stay medicine (8) Sensorineural hearing loss, bilateral: Status: Acute (9) Community acquired pneumonia of both lower lobes: Status: Acute Problem details: -as above (10) Encephalopathy due to COVID-19 virus: Status: Acute Problem details: -moderate -sublingual Zyprexa p.r.n. (11) COVID-19: Status: Acute Problem details: PCR positive 09/08/22, symptom onset. symptom onset 09/05/22 (12) COPD (chronic obstructive pulmonary disease): Status: Acute Problem details: long standing (13) Hypertension: Status: Acute Problem details: hold meds as clinically appropriate Transfer Discharge Sum: Med Medications Active and Home Medications: Home Medications aspirin 81 mg tablet,delayed release (Adult Aspirin Regimen) 81 mg PO DAILY 02/25/22 [History Confirmed 09/08/22] bromocriptine 2.5 mg tablet 2.5 mg PO DAILY 02/25/22 [History Confirmed 09/09/22] carbidopa 25 mg-levodopa 100 mg tablet (Sinemet) 1 tab PO TID 02/25/22 [History Confirmed 09/08/22] lorazepam 0.5 mg tablet (Ativan) 0.5 mg PO Q6H PRN 02/25/22 [History Confirmed 09/08/22] nitroglycerin 0.4 mg sublingual tablet 0.4 mg sublingual Q5M PRN chest pain 02/25/22 [History Confirmed 09/09/22] oxycodone-acetaminophen 5 mg-325 mg tablet 1 tab PO Q6H PRN 02/25/22 [History Confirmed 09/09/22] sennosides 8.6 mg capsule (senna) 8.6 mg PO BID 02/25/22 [History Confirmed 09/08/22] sildenafil 50 mg tablet (Viagra) 50 mg PO DAILY PRN 02/25/22 [History Confirmed 09/09/22] simvastatin 40 mg tablet 40 mg PO DAILY 02/25/22 [History Confirmed 09/08/22] trospium 60 mg capsule,extended release 24 hr 60 mg PO DAILY 02/25/22 [History Confirmed 09/08/22] sennosides 8.6 mg capsule (senna) 8.6 mg PO DAILY PRN constipation #90 caps 03/01/22 [Rx Confirmed 09/08/22] azithromycin 500 mg tablet (Zithromax TRI-ANDRE) 500 mg PO DAILY 3 days #3 tabs 09/07/22 [Rx Confirmed 09/08/22] furosemide 20 mg tablet (Lasix) 20 mg PO DAILY 5 days #5 tabs 09/07/22 [Rx Confirmed 09/08/22] prednisone 20 mg tablet 20 mg PO DAILY 3 days #3 tabs 09/07/22 [Rx Confirmed 09/08/22] fludrocortisone 0.1 mg tablet 0.1 mg PO BID 09/08/22 [History Confirmed 09/08/22] Active Medications Acetaminophen (Acetaminophen 325 Mg Tablet) 650 mg PO QID PRN Last Admin: 09/09/22 18:10 Dose: 650 mg Albuterol (Albuterol Sulfate 2.5 Mg/3 Ml Vial.Neb) 2.5 mg NEB Q4H PRN Albuterol/Ipratropium (Iprat-Albut 0.5-2.5 Mg/3 Ml Neb) 1 neb IH Q6H PRN PRN Reason: wheezing Last Admin: 09/12/22 11:23 Dose: 1 neb Aspirin (Aspirin 81 Mg Tablet Ec) 81 mg PO DAILY [facility] Last Admin: 09/12/22 08:44 Dose: 81 mg Baricitinib (Baricitinib 2 Mg Tab) 4 mg PO Q24H [facility] Last Admin: 09/11/22 14:12 Dose: 4 mg Carbidopa/Levodopa (Carbidopa-Levodopa 25-100 Tablet) 1 tab PO TID [facility] Last Admin: 09/12/22 10:00 Dose: 1 tab Dexamethasone (Dexamethasone 2 Mg Tablet) 9 mg PO Q24H [facility] Last Admin: 09/11/22 14:10 Dose: 9 mg Enoxaparin Sodium (Enoxaparin 40 Mg/0.4 Ml Inj) 40 mg SUBCUT HS [facility] Last Admin: 09/11/22 19:59 Dose: 40 mg Fludrocortisone Acetate (Fludrocortisone Acetate 0.1 Mg Tablet) 0.1 mg PO BID [facility] Last Admin: 09/12/22 10:00 Dose: 0.1 mg Furosemide (Furosemide 20 Mg Tablet) 20 mg PO DAILY [facility] Last Admin: 09/12/22 08:44 Dose: 20 mg Piperacillin Sod/Tazobactam (Sod 3.375 gm/ Sodium Chloride) 100 mls @ 200 mls/hr IVPB Q6H [facility] Last Admin: 09/12/22 08:42 Dose: 200 mls/hr Lorazepam (Lorazepam 0.5 Mg Tablet) 0.5 mg PO Q6H PRN Last Admin: 09/11/22 19:45 Dose: 0.5 mg Nitroglycerin (Nitroglycerin 0.4 Mg Tab.Subl) 0.4 mg SUBLINGUAL .Q5 PRN PRN Reason: chest pain Olanzapine (Olanzapine 5 Mg Tab.Rapdis) 5 mg PO TID PRN PRN Reason: Agitation Last Admin: 09/11/22 16:52 Dose: 5 mg Ondansetron HCl (Ondansetron Odt 4 Mg Tab) 4 mg PO Q6H PRN Oxycodone/Acetaminophen (Oxycodone/Apap 5-325 Tablet) 1 tab PO Q6H PRN Polyethylene Glycol (Polyethylene Glycol 3350 17 Gm Pack) 17 gm PO DAILY PRN Sennosides (Sennosides 1 Tab Tablet) 1 tab PO BID [facility] Last Admin: 09/12/22 08:43 Dose: 1 tab Sennosides (Sennosides 1 Tab Tablet) 1 tab PO DAILY PRN PRN Reason: constipation Simvastatin (Simvastatin 40 Mg Tablet) 40 mg PO DAILY [facility] Last Admin: 09/12/22 08:44 Dose: 40 mg Sodium Chloride (Sodium Chloride 0.9 % (Flush) 10 Ml Syringe) 5 ml IVF .FLUSH PRN Sodium Chloride (Sodium Chloride 0.9 % (Flush) 10 Ml Syringe) 5 ml IVF BID [facility] Last Admin: 09/12/22 08:45 Dose: 5 ml Sodium Chloride (0.9 % Sodium Chloride 250 Ml) 250 ml IV Q24H [facility] Last Admin: 09/12/22 08:46 Dose: 250 ml Transfer Discharge Sum: Hosp Hospital Course Hospital course: This is an 82-year-old male with a complicated past medical history including coronary artery disease and severe COPD who presented several times to the emergency department near the end of August and beginning of September for concerns of COVID. On 09/08/2022 he was hypoxic and admitted to the hospital for acute on chronic hypoxic respiratory failure secondary to COVID. It was also thought that he likely had a component of bacterial pneumonia for which he was started on azithromycin as an outpatient along with prednisone. The patient has been confused, encephalopathic. Upon admission to the hospital he was started on ceftriaxone and azithromycin, VTE prophylaxis with low-dose enoxaparin, and COVID specific therapies which included oxygen supplementation and dexamethasone. [facility] at the time that the patient was admitted. Due to worsening respiratory status and increasing oxygen needs, he was started on baricitinib. He was also started on high-flow oxygen. He was transition to Zosyn. On 09/11/2022 Dr. Long spoke with [facility] practitioner who recommended IV Lasix and continued support. Despite these measures he continued to decline and had increased oxygen needs today, briefly being at 100% FiO2, but then being able to wean to about 85% FiO2 just prior to transfer to [place]. Please see above for specific treatment of diagnoses. He was transferred to [facility] today as his desired for him to be a full code and we do not have the capability of managing ventilators here should he need that. I had multiple discussions today with his 2 sons, daughter, who were here in person, and the who was on the phone. They worse kept of call of the care that he has received despite it being guideline therapy for COVID treatment. His agreed with transfer to [facility] for ICU care with the understanding that they would also be using guidelines specific therapy for COVID which will include the same treatments that we have been doing here. She understood that his prognosis either way is poor. Time Spent with Patient Time attestation: Total time spent in consultation with family, seeing patient, several phone calls with [facility] was 3 hours. Exam Narrative: Exam Narrative: General: No respiratory distress despite sats being 84% on high-flow oxygen. No respiratory distress. Sleepy, confused. Cardiovascular: Regular rate and rhythm. Bradycardic at times.. Respiratory: Coarse with crackles throughout. Const: Vital Signs, click to edit/add: Vital Signs - 24 hr 09/11/22 15:00 09/11/22 15:00 09/11/22 16:00 Temperature 98.4 F Pulse Rate Pulse Rate [Left A pical] Pulse Rate [Left P ulse Oximeter] 72 Respiratory Rate 24 24 Blood Pressure [Ri ght Arm] 148/77 H Pulse Oximetry 92 92 Oxygen Delivery Me thod High Flow Nasal Ca nnula High Flow Nasal Ca nnula Oxygen Flow Rate 30 30 Fraction of Inspir ed Oxygen 35 35 35 09/11/22 15:00 09/11/22 18:00 09/11/22 18:00 Temperature Pulse Rate 60 Pulse Rate [Left A pical] Pulse Rate [Left P ulse Oximeter] 68 Respiratory Rate 24 Blood Pressure [Ri ght Arm] Pulse Oximetry Oxygen Delivery Me thod Oxygen Flow Rate Fraction of Inspir ed Oxygen 35 09/11/22 19:43 09/11/22 20:00 09/11/22 20:49 Temperature 97.6 F Pulse Rate 65 Pulse Rate [Left A pical] Pulse Rate [Left P ulse Oximeter] 63 Respiratory Rate 22 Blood Pressure [Ri ght Arm] 136/87 Pulse Oximetry 92 Oxygen Delivery Me thod High Flow Nasal Ca nnula Oxygen Flow Rate 30 Fraction of Inspir ed Oxygen 35 35 09/11/22 22:00 09/11/22 22:00 09/11/22 22:35 Temperature 97.6 F Pulse Rate Pulse Rate [Left A pical] Pulse Rate [Left P ulse Oximeter] 63 59 L Respiratory Rate 20 20 Blood Pressure [Ri ght Arm] 151/91 H Pulse Oximetry 93 Oxygen Delivery Me thod High Flow Nasal Ca nnula Oxygen Flow Rate 30 Fraction of Inspir ed Oxygen 35 35 09/11/22 23:00 09/11/22 23:00 09/12/22 00:08 Temperature Pulse Rate 65 Pulse Rate [Left A pical] Pulse Rate [Left P ulse Oximeter] Respiratory Rate 20 Blood Pressure [Ri ght Arm] Pulse Oximetry 93 Oxygen Delivery Me thod High Flow Nasal Ca nnula Oxygen Flow Rate 30 Fraction of Inspir ed Oxygen 35 40 09/12/22 00:08 09/12/22 02:12 09/12/22 02:12 Temperature Pulse Rate Pulse Rate [Left A pical] Pulse Rate [Left P ulse Oximeter] 60 60 Respiratory Rate 18 18 Blood Pressure [Ri ght Arm] 142/82 H Pulse Oximetry 91 Oxygen Delivery Me thod High Flow Nasal Ca nnula Oxygen Flow Rate 30 Fraction of Inspir ed Oxygen 40 45 09/12/22 02:13 09/12/22 04:20 09/12/22 04:20 Temperature 97.8 F Pulse Rate Pulse Rate [Left A pical] Pulse Rate [Left P ulse Oximeter] 60 62 Respiratory Rate 18 18 Blood Pressure [Ri ght Arm] 154/107 H 182/96 H Pulse Oximetry 91 93 Oxygen Delivery Me thod High Flow Nasal Ca nnula High Flow Nasal Ca nnula Oxygen Flow Rate 30 30 Fraction of Inspir ed Oxygen 45 45 45 09/12/22 06:00 09/12/22 06:00 09/12/22 10:25 Temperature Pulse Rate Pulse Rate [Left A pical] Pulse Rate [Left P ulse Oximeter] 62 Respiratory Rate 18 Blood Pressure [Ri ght Arm] Pulse Oximetry Oxygen Delivery Me thod Oxygen Flow Rate 35 Fraction of Inspir ed Oxygen 45 100 09/12/22 07:50 09/12/22 11:38 09/12/22 07:30 Temperature 97.6 F 97.1 F L Pulse Rate 60 Pulse Rate [Left A pical] 68 62 Pulse Rate [Left P ulse Oximeter] 68 62 Respiratory Rate 24 22 Blood Pressure [Ri ght Arm] 172/88 H 185/89 H Pulse Oximetry 93 87 L Oxygen Delivery Me thod High Flow Nasal Ca nnula High Flow Nasal Ca nnula Oxygen Flow Rate 35 35 Fraction of Inspir ed Oxygen 45 100 09/12/22 07:30 Temperature Pulse Rate Pulse Rate [Left A pical] Pulse Rate [Left P ulse Oximeter] Respiratory Rate 24 Blood Pressure [Ri ght Arm] Pulse Oximetry 89 Oxygen Delivery Me thod High Flow Nasal Ca nnula Oxygen Flow Rate 35 Fraction of Inspir ed Oxygen 45 Transfer Discharge Sum: Data Data Completed and Pending Completed studies during hospitalization: Ordering Physician: Marlo Saavedra M.D. Date of Service: 09/07/22 Procedure(s): XR chest 1V portable Accession Number(s): [id number] cc: Enid Johnston PA-C; Marlo Saavedra M.D.~ For Patients: As a result of the Cures Act, medical imaging exams and procedure reports are released immediately into your electronic medical record. You may view this report before your referring provider. If you have questions, please contact your health care provider. INDICATION: Cough COMPARISON: July 12, 2021. TECHNIQUE: Single-view examination FINDINGS: TUBES AND LINES: Pacer with leads terminating in the right atrium and the right ventricle HEART AND MEDIASTINUM: Heart size normal. Significantly enlarged central pulmonary arteries consistent with pulmonary hypertension. Similar to the prior exam. LUNGS AND PLEURAL SPACES: Abnormal interstitial and alveolar findings likely related to pulmonary edema/congestive heart failure. A diffuse inflammatory process accounting for this appearance is possible.No pleural effusion or pneumothorax OSSEOUS STRUCTURES: Age-appropriate appearance. No acute focal finding. IMPRESSION: 1. Abnormal interstitial and alveolar findings likely related to pulmonary edema/congestive heart failure. A diffuse inflammatory process may create this appearance. Normal pleural spaces. 2. Pacer normally located. 3. Enlarged central pulmonary arteries consistent with pulmonary hypertension. Similar to the prior exam. Dictated by Dell Dutta MD @ 09/07/2022 10:12:10 AM (Electronically Signed) Ordering Physician: Ysabel Negron M.D. Date of Service: 09/08/22 Procedure(s): XR chest 1V portable Accession Number(s): [id number] cc: Enid Johnston PA-C; Ysabel Negron M.D.~ For Patients: As a result of the Cures Act, medical imaging exams and procedure reports are released immediately into your electronic medical record. You may view this report before your referring provider. If you have questions, please contact your health care provider. INDICATION: Worsening clinical course, fever. TECHNIQUE: Chest 1 views. COMPARISON: Previous day. FINDINGS: Lungs: Normal lung volume. Worsening bilateral diffuse airspace disease. Pleura: No pleural effusion or pneumothorax. Heart and Mediastinum: Stable cardiomediastinal silhouette. Bones: Stable osseous structures. IMPRESSION: Worsening bilateral diffuse airspace disease. Dictated by Yasmeen Montilla MD @ 09/08/2022 6:05:11 PM (Electronically Signed) Ordering Physician: Ysabel Negron M.D. Date of Service: 09/08/22 Procedure(s): CT angio chest PE protocol Accession Number(s): [id number] cc: Enid Johnston PA-C; Ysabel Negron M.D.~ For Patients: As a result of the Cures Act, medical imaging exams and procedure reports are released immediately into your electronic medical record. You may view this report before your referring provider. If you have questions, please contact your health care provider. INDICATION: COVID, PNEUMONIA, ELEVATED WBC, COPD CT CHEST WITH CONTRAST TECHNIQUE: Multidetector CT imaging was performed through the chest following intravenous contrast administration using 95 mL Isovue 370. Coronal and sagittal reconstructions were generated. COMPARISON: 03/18/[address] FINDINGS: Lungs and airways: Pulmonary emphysema. Significantly decreased size of previously seen right apical lung nodule, which now appears calcified. Scattered mild interstitial fibrosis in the upper and mid lungs, slightly increased from before. Increased bibasilar lung stranding and indeterminate poorly defined lung opacity in the posterior left lower lobe on images 149-168 of series 5. Bibasilar pneumonia is a consideration although underlying malignancy in the left lower lobe is not excluded. Pleura and pleural spaces: New trace bilateral pleural effusions. Heart and mediastinum: Normal heart size. No significant pericardial effusion. Cardiac pacemaker. New mildly enlarged mediastinal lymph node in the AP window on image 68 of series 4, and new mildly enlarged right hilar lymph node on image 117 of series 4. Vascular structures: No filling defects in the pulmonary arterial tree to suggest pulmonary emboli. Normal caliber thoracic aorta. Coronary artery calcifications. Chest wall and axillae: No mass or axillary lymphadenopathy. Osseous structures: Spinal degenerative changes. Upper abdomen: Cholelithiasis without evidence of cholecystitis. Left hepatic lobe small hypodensities most consistent with liver cysts. IMPRESSION: 1. Increased bibasilar lung stranding, suspicious for bibasilar pneumonia. Poorly defined opacity in the left lower lobe, partially obscured by infiltrate, may represent pneumonia although underlying malignancy is not excluded and follow-up is recommended. 2. New trace bilateral pleural effusions. 3. New mild mediastinal and right hilar lymphadenopathy, nonspecific. 4. Pulmonary emphysema. 5. No pulmonary emboli identified. 6. Nonacute additional findings as detailed above. YASMEEN HEREDIA MD [employer] [employer] Dictated by Antonino Heredia MD @ 09/08/2022 7:27:32 PM Please note that all CT scans at this facility use dose modulation, iterative reconstruction, and/or weight-based dosing when appropriate to reduce radiation dose to as low as reasonably achievable. Dictated by: Antonino Heredia MD @ 09/08/2022 19:27:51 (Electronically Signed) Ordering Physician: Mariella Haas M.D. Date of Service: 09/10/22 Procedure(s): XR chest 1V portable Accession Number(s): [id number] cc: Mariella Haas M.D.; Enid Johnston PA-C~ For Patients: As a result of the Cures Act, medical imaging exams and procedure reports are released immediately into your electronic medical record. You may view this report before your referring provider. If you have questions, please contact your health care provider. Indication: COVID-19 positive results. Technique: Chest 1 view. Comparison: CT chest September 08, 2022. Findings/Impression: Cardiovascular and mediastinum: Heart size and vasculature are normal in caliber and appearance. Unchanged pacemaker. Lungs and pleural space: Interval worsening of a right lower lobe infiltrate suspicious for pneumonia. Diffuse interstitial edema is not significantly changed. No significant pleural effusion and no pneumothorax. Bones and soft tissues: No acute findings. Dictated by Julian Eden MD @ 09/10/2022 9:56:29 AM (Electronically Signed) Ordering Physician: Mariella Haas M.D. Date of Service: 09/11/22 Procedure(s): XR chest 1V portable Accession Number(s): [id number] cc: Mariella Haas M.D.; Enid Johnston PA-C~ For Patients: As a result of the Cures Act, medical imaging exams and procedure reports are released immediately into your electronic medical record. You may view this report before your referring provider. If you have questions, please contact your health care provider. INDICATION: f/u covid TECHNIQUE: Chest 1 view COMPARISON: 09/08/2022, 09/10/2022 FINDINGS: Chronic COPD/emphysema/chronic bronchitis. Cardiomegaly. Atherosclerotic disease. Tortuosity aorta. No pleural effusion. No pneumothorax. Parenchymal densities within the right midlung zone and left lung base. IMPRESSION: Mild bilateral infiltrates superimposed upon chronic lung disease. Dictated by Yasmeen Cisneros MD @ 09/11/2022 7:09:03 AM (Electronically Signed) Ordering Physician: Mariella Haas M.D. Date of Service: 09/12/22 Procedure(s): XR chest 1V portable Accession Number(s): [id number] cc: Mariella Haas M.D.; Enid Johnston PA-C~ For Patients: As a result of the Century Cures Act, medical imaging exams and procedure reports are released immediately into your electronic medical record. You may view this report before your referring provider. If you have questions, please contact your health care provider. INDICATION: COVID pneumonia COMPARISON: September 11, 2022 at 6:46 a.m. TECHNIQUE: Single-view examination September 12, 2022 at 6:56 a.m. FINDINGS: TUBES AND LINES: Pacer with leads terminating in the right atrium and the right ventricle HEART AND MEDIASTINUM: Mildly enlarged heart unchanged in appearance.. LUNGS AND PLEURAL SPACES: Moderate diffuse multifocal airspace process bilaterally, right greater than left. Essentially unchanged within technical variations.No pleural effusion or pneumothorax OSSEOUS STRUCTURES: Age-appropriate appearance. No acute focal finding. IMPRESSION: Moderate diffuse multifocal airspace process bilaterally, right greater than left. No pleural effusion or pneumothorax. Essentially unchanged given technical variations. Dictated by Dell Dutta MD @ 09/12/2022 7:14:57 AM (Electronically Signed) 09/08/2022 5:40 p.m. EKG: Atrial paced rhythm with occasional sinus complexes and premature ventricular complexes. Discharge Plan Discharge Disposition: [facility] Discharge Location: [facility] Date of Admission: 09/08/22 20:28 Attending Provider on Discharge: Leighann Reyna Primary Care Provider: Enid Johnston Condition: Unchanged Discharge Medications: Continued aspirin [Adult Aspirin Regimen] 81 mg tablet,delayed release (DR/EC) 81 mg PO DAILY bromocriptine 2.5 mg tablet 2.5 mg PO DAILY Rx Instructions: must administer with a meal/food carbidopa-levodopa [Sinemet] 25-100 mg tablet 1 tab PO TID lorazepam [Ativan] 0.5 mg tablet 0.5 mg PO Q6H PRN nitroglycerin 0.4 mg tablet, sublingual 0.4 mg sublingual Q5M PRN (Reason: chest pain) Rx Instructions: PRN CHEST PAIN oxycodone-acetaminophen 5-325 mg tablet 1 tab PO Q6H PRN senna 8.6 mg capsule 8.6 mg PO BID sildenafil [Viagra] 50 mg tablet 50 mg PO DAILY PRN Rx Instructions: administer 30 minutes to 4 hours before activity simvastatin 40 mg tablet 40 mg PO DAILY trospium 60 mg capsule,extended release 24hr 60 mg PO DAILY Rx Instructions: must be taken on empty stomach at least 1 hour before a meal/food with water only senna 8.6 mg capsule 8.6 mg PO DAILY PRN (Reason: constipation) Qty: 90 0RF fludrocortisone 0.1 mg tablet 0.1 mg PO BID Label Comments: TAKE ONE TABLET BY MOUTH TWICE DAILY azithromycin [Zithromax TRI-ANDRE] 500 mg tablet 500 mg PO DAILY 3 Days Qty: 3 0RF furosemide [Lasix] 20 mg tablet 20 mg PO DAILY 5 Days Qty: 5 0RF prednisone 20 mg tablet 20 mg PO DAILY 3 Days Qty: 3 0RF Discharge Orders: Discharge Order (Routine); Ordered 09/12/22 Ordered By: Leighann Reyna Activity Level: Up with assist Discharge Diet: Regular Follow Up Appointments: Enid Johnston PAEvelioC [Primary Care Provider] - Forms: [facility] Info Instructions
--- NOTE | 2022-09-12 14:51 | PC.NURSE ---
shift note: pt on hiflo 35L , 45%,36 degrees. pt sats 86-89. Resp therapy evaluating pt at bedside. sats decreased to 82% on hiflo 35L, 100%,[address] Reyna notified. Resp therapy contacted to bedside and duoneb given. Pt increased to 40L.100% fio2. Pt rr rate 22/min and even. LS remain rhonchi bibasilar with productive cough. pt producing large amounts of yellow thick phlegm. Pt placed on RT side nasal cannula adjusted. Pt sats 97%. Resp therapist at bedside adjusting hiflo. Family approached about decision for transfer per Dr. Reyna recommendation. Family expressing concerns with transfer. Report via phone given to [facility] in [place]. Pt transfer via EMS on hiflo @ [phone]. Belongings sent with family at [place]. IV patent to lt FA.
== END 2022-09-12 13:45 | disposition short-term general hospital (02) | DRG 177 ==
LOC: ED 18:29 → MEDSURG 19:07
PROVIDERS: Family Medicine; Admitting Provider Internal Medicine; Emergency Provider Family Medicine; PCP Physician Assistant Medical; Visit Provider Internal Medicine
DX: U07.1 COVID-19 (principal); J12.82 Pneumonia due to coronavirus disease 2019; J96.21 Acute and chronic respiratory failure with hypoxia; G93.49 Other encephalopathy; E27.40 Unspecified adrenocortical insufficiency; J44.9 Chronic obstructive pulmonary disease, unspecified; I13.0 Hypertensive heart and chronic kidney disease with heart failure and stage 1 through stage 4 chronic kidney disease, or unspecified chronic kidney disease; I50.9 Heart failure, unspecified; N18.30 Chronic kidney disease, stage 3 unspecified; R53.1 Weakness; R91.1 Solitary pulmonary nodule; G20 Parkinson's disease; I10 Essential (primary) hypertension; I95.1 Orthostatic hypotension; I25.10 Atherosclerotic heart disease of native coronary artery without angina pectoris; Z95.0 Presence of cardiac pacemaker; E78.5 Hyperlipidemia, unspecified; F41.9 Anxiety disorder, unspecified; N40.0 Benign prostatic hyperplasia without lower urinary tract symptoms; H90.3 Sensorineural hearing loss, bilateral
CPT/HCPCS: 36415; 71045; 71260; 80048; 80053; 81001; 82330; 82803; 83605; 83735; 83880; 84100; 84145; 84443; 84484; 85025; 85027; 86140; 87040; 87502; 87634; 87635; 93005; 94640; 94664; 94761; 97110; 97116; 97162; 97166; 97530; 99284; 99285; G0378; A9270; J0456; J0696; J1100; J1650; J1940; J2543; J2930; J7050; Q9967

== ENCOUNTER 2022-09-12 13:20 | Outpatient (CLI) | payer MEDICARE, OTHER, SELFPAY | END 2022-09-12 13:21 | disposition home or self-care (01) | LOC: AMB 11-01 11:33 | PROVIDERS: PCP Physician Assistant Medical; Visit Provider Family Medicine | DX: U07.1 COVID-19 (principal); J96.11 Chronic respiratory failure with hypoxia; J18.9 Pneumonia, unspecified organism | CPT/HCPCS: A0425; A0426; A0427 ==

== ENCOUNTER 2022-10-06 07:29 | Outpatient (CLI) | payer MEDICARE, OTHER, SELFPAY ==
--- NOTE | 2022-10-06 08:00 | CRLHL7_ITS ---
For Patients: As a result of the Century Cures Act, medical imaging exams and procedure reports are released immediately into your electronic medical record. You may view this report before your referring provider. If you have questions, please contact your health care provider. INDICATION: Follow up pulmonary opacities. TECHNIQUE: CT chest without intravenous contrast. Coronal and sagittal reformats. COMPARISON: Chest CT 09/08/2022. FINDINGS: Central airways patent. Intraluminal adherent debris near the calista. Advanced lower lung predominant emphysema with scattered areas of peripheral scarring. New and interval increased heterogeneous consolidative, scattered linear, and patchy ground-glass opacities bilaterally, most pronounced in the bilateral lower lobes. Small right greater than left pleural effusions. No pneumothorax. - Normal cardiac size. Heavy coronary artery calcifications. Left chest wall multi chamber cardiac pacing device. Multiple prominent subcentimeter mediastinal lymph nodes. The imaged upper abdomen demonstrates cholelithiasis. No suspicious osseous lesion. IMPRESSION: 1. New and interval increased extensive lower lung predominant heterogeneous opacities. Leading considerations include atypical/multifocal infection and/or evolving lung injury. Recommend further evaluation with repeat chest CT in 3 months. 2. Advanced emphysema with superimposed pulmonary fibrosis. 3. Small right greater than left pleural effusions. 4. Coronary artery disease. Please note that all CT scans at this facility use dose modulation, iterative reconstruction, and/or weight-based dosing when appropriate to reduce radiation dose to as low as reasonably achievable. Dictated by Humble Alexandra MD @ 10/08/2022 3:19:41 PM (Electronically Signed)
== END 2022-10-06 07:30 | disposition home or self-care (01) ==
LOC: CT 07:31
PROVIDERS: PCP Physician Assistant Medical; Visit Provider Family Medicine
DX: R91.1 Solitary pulmonary nodule (principal); J90 Pleural effusion, not elsewhere classified; I25.10 Atherosclerotic heart disease of native coronary artery without angina pectoris; J43.8 Other emphysema; J84.10 Pulmonary fibrosis, unspecified
CPT/HCPCS: 71250

== ENCOUNTER 2023-08-01 08:53 | Outpatient (CLI) | payer MEDICARE, OTHER, SELFPAY | END 2023-08-01 08:54 | disposition home or self-care (01) | LOC: AMB 08-02 11:06 | PROVIDERS: PCP Physician Assistant Medical; Visit Provider Emergency Medicine Emergency Medical Services | DX: R55 Syncope and collapse (principal); R42 Dizziness and giddiness | CPT/HCPCS: A0425; A0427 ==

== ENCOUNTER 2023-11-28 14:15 | Outpatient (RCR) | payer MEDICARE, OTHER, SELFPAY | END 2024-03-27 23:59 | disposition home or self-care (01) | PROVIDERS: PCP Physician Assistant Medical; Visit Provider Family Medicine | DX: M79.641 Pain in right hand (principal); R60.9 Edema, unspecified; R53.1 Weakness; Z51.89 Encounter for other specified aftercare | CPT/HCPCS: L3808 ==